=== PATIENT | female | born 1965 | race Caucasian/White ===

== ENCOUNTER → 2016-06-07 | Outpatient (CLI) | payer BC ==
[~2016-06-07] VITALS: Ht 157.5 cm; Wt 89.8 kg
[~2016-06-07] MED LIST: /SUCR1TA PO; ACET65TA PO; ASPI32ECTA PO; CIPR250T3 PO; COZA25TA8 OR; FLAG500T PO; FLON0.05; FOLI1TAB OR; FOLI1TAB2 PO; LEVO112T OR; LEVO175T2 PO; LIDOCAINE 2% INJ 100 MG/5 ML SDV (FOR ANES.) As Ordered ONE; METH2.5T OR; METH2.5TA PO; MULT1TAB10 PO; NICO14DI3 TD; NS 1,000 ML IV SCH; OMEP20TA7 OR; OREN250I IV; OREN250I SC; PERC5TAB8 OR; PLAQ200T PO; PROPOFOL 200 MG/20 ML VIAL As Ordered ONE; PROT1TAB2 PO; TUMS500C PO; ZOFR8TAB OR; [UNRECOGNIZED DRUG - OTHER] PO; cozaar PO; losartan; tylenol PO; ultram PO; vicodin PO
--- NOTE | 2016-06-07 14:41 | ROOR ---
Patient Name: Shakira Odom Procedure Date: 06/07/2016 2:26 PM Date of : 1965 Age: 51 Room: [facility] [place] Gender: Female Note Status: Finalized Procedure: Upper GI endoscopy Indications: Oropharyngeal phase dysphagia, Esophageal dysphagia, Neurogenic dysphagia. (dysphagia for liquids only). Providers: Karlo MURO MD Referring MD: LUZ MARINA URIAS DO Requesting Provider: Medicines: Monitored Anesthesia Care Complications: No immediate complications. Procedure: Pre-Anesthesia Assessment: - The heart rate, respiratory rate, oxygen saturations, blood pressure, adequacy of pulmonary ventilation, and response to care were monitored throughout the procedure. The Endoscope was introduced through the mouth, and advanced to the second part of duodenum. The upper GI endoscopy was accomplished without difficulty. The patient tolerated the procedure well. Findings: The esophagus was normal. The stomach was normal. The examined duodenum was normal. No endoscopic abnormality was evident in the esophagus to explain the patient's complaint of dysphagia. It was decided, however, to proceed with dilation of the entire esophagus. The scope was withdrawn. Dilation was performed with a Herrera dilator with no resistance at 54 Fr. Impression: - Normal esophagus. - Normal stomach. - Normal examined duodenum. - No endoscopic esophageal abnormality to explain patient's dysphagia. Esophagus dilated. Dilated with 54 Herrera dilator. - No specimens collected. Recommendation: - Observe patient's clinical course. - Continue present medications. Karlo Muro MD Kalro MURO MD 06/07/2016 2:40:57 PM This report has been signed electronically. Number of Addenda: 0 Note Initiated On: 06/07/2016 2:26 PM Estimated Blood Loss: Estimated blood loss: none.
[2016-06-07 15:03] VITALS: BP 137/88
== END | disposition home or self-care (01) ==
LOC: M OPP 12:43
PROVIDERS: ATTEND Internal Medicine Gastroenterology
DX: R13.12 Dysphagia, oropharyngeal phase (principal); R13.14 Dysphagia, pharyngoesophageal phase; R12 Heartburn; I10 Essential (primary) hypertension; M06.9 Rheumatoid arthritis, unspecified; G47.30 Sleep apnea, unspecified; F17.200 Nicotine dependence, unspecified, uncomplicated; F17.228 Nicotine dependence, chewing tobacco, with other nicotine-induced disorders; Z79.82 Long term (current) use of aspirin; Z79.899 Other long term (current) drug therapy

== ENCOUNTER → 2016-07-03 | Outpatient (REF) | payer BC ==
[~2016-07-03] MED LIST changes: -LIDOCAINE 2% INJ 100 MG/5 ML SDV (FOR ANES.) As Ordered ONE; -NS 1,000 ML IV SCH; -PROPOFOL 200 MG/20 ML VIAL As Ordered ONE
[2016-07-03 12:14] LABS: ALBUMIN 3.3 GM/DL (3.2-5.2); ALKALINE PHOSPHATASE 122 U/L (45-117); ALT/SGPT 39 U/L (12-78); AST/SGOT 20 U/L (15-37); BLOOD UREA NITROGEN 14 MG/DL (7-18); CREATININE FOR GFR 0.76 MG/DL (0.55-1.02); GLOMERULAR FILTRATION RATE > 60.0 (>51)
[2016-07-03 12:19] LABS: BASO % 0.5 % (0.0-1.0); EOS # 0.2 K/mm3 (0.0-0.50); EOS % 3.1 % (0.0-3.0); LYMPH # 2.1 K/mm3 (1.5-4.5); LYMPH % 34.6 % (24.0-44.0); MEAN CORPUSCULAR HEMOGLOBIN 31.4 pg (27.0-33.0); MEAN CORPUSCULAR HGB CONC 33.3 g/dl (32.0-36.5); MEAN CORPUSCULAR VOLUME 94.2 fl (80.0-96.0); MONO # 0.3 K/mm3 (0.0-0.8); MONO % 5.5 % (0.0-5.0); NEUTROPHILS # 3.2 K/mm3 (1.8-7.7); NEUTROPHILS % 53.4 % (36.0-66.0); RED CELL DISTRIBUTION WIDTH 13.7 % (11.5-14.5)
== END ==
LOC: M LABDRAW1 11:35
PROVIDERS: ATTEND Physician Assistant Medical
DX: M05.79 Rheumatoid arthritis with rheumatoid factor of multiple sites without organ or systems involvement (principal); Z79.899 Other long term (current) drug therapy

== ENCOUNTER → 2016-08-07 | Outpatient (CLI) | payer BC ==
[~2016-08-07] MED LIST changes: +E-Z PAQUE 60% w/v SUSP 355ML BOTTLE As Ordered ONE; +VARIBAR NECTAR 40% w/v 240ML SUSP BTL As Ordered ONE; +VARIBAR PUDDING 40% w/v 230ML TUBE As Ordered ONE
--- NOTE | 2016-08-07 12:30 | REP ---
COOKIE SWALLOW: The procedure was performed under the direct supervision of Dr. Schneider. The procedure was performed with Lana Muñoz from speech pathology present. 5 mL aliquots of nectar, pudding, solid and thin consistency barium was administered. There is no evidence of penetration or aspiration. A detailed report of this examination will be provided by speech pathology. 30 seconds of fluoroscopy time was utilized for this procedure. Reviewed by AIDE Gonzalez 08/08/2016 08:30 AEdited and Signed by Jerman Schneider MD 08/08/2016 06:13 P
== END ==
LOC: M ST 10:22
PROVIDERS: ATTEND Physician Assistant Medical
DX: R13.10 Dysphagia, unspecified (principal)

== ENCOUNTER → 2016-12-17 | Outpatient (CLI) | payer BC ==
[~2016-12-17] MED LIST changes: +ASPI325T24 PO; -ASPI32ECTA PO; -E-Z PAQUE 60% w/v SUSP 355ML BOTTLE As Ordered ONE; -FOLI1TAB2 PO; +FOLI1TAB4 PO; -VARIBAR NECTAR 40% w/v 240ML SUSP BTL As Ordered ONE; -VARIBAR PUDDING 40% w/v 230ML TUBE As Ordered ONE
[2016-12-17 15:18] LABS: ALT/SGPT 45 U/L (12-78); AST/SGOT 20 U/L (15-37)
== END ==
LOC: M LAB 13:58
PROVIDERS: ATTEND Physician Assistant
DX: R79.89 Other specified abnormal findings of blood chemistry (principal)

== ENCOUNTER → 2017-04-05 | Outpatient (CLI) | payer BC ==
--- NOTE | 2017-04-05 10:51 | REP ---
Digital diagnostic unilateral right breast mammography with CAD and focused right breast sonography: History: Screening mammography April 02, 2017 BIRADS category 0 due to a nodular density projecting in the upper outer quadrant for which diagnostic imaging was recommended. Comparison mammography is also reviewed from October 13, 2015, October 08, 2014. Mammographic findings: Magnified focal spot compression CC, MLO and true MLO views of the right breast confirm the presence of well-circumscribed nodular opacities in the upper outer quadrant. There is also a needle biopsy marker clip in the upper outer quadrant 3.5 cm from the nodular density. No other significant mammographic finding. Sonographic findings: The right breast is scanned from 9 o'clock to 12 o'clock through the upper outer quadrant. At 12 o'clock approximately 5.6 cm from the nipple there is a group of benign appearing cysts adjacent to one another with aggregate dimension of 0.7 cm in greatest diameter. This is felt to account for the mammographic opacity. It has a benign appearance. Impression: BIRADS category 2 benign right breast imaging. Repeat screening mammography recommended in 1 year. BI-RADS/ACR category 2 mammogram. Benign finding(s). Routine annual screening mammography (for women over age 40). This mammogram was interpreted with the aid of an FDA-approved computer-aided detection system. The patient states she had a clinical breast exam in March 2017. The patient letter being requested is m#1. Signed by Jerman Schneider MD 04/05/2017 01:13 P
== END ==
LOC: M RAD 09:09
PROVIDERS: ATTEND Family Medicine
DX: N60.01 Solitary cyst of right breast (principal)
CPT/HCPCS: 76642; G0204

== ENCOUNTER → 2017-05-02 | Outpatient (CLI) | payer BC ==
--- NOTE | 2017-05-02 16:10 | REP ---
LUMBAR SPINE COMPLETE: 05/02/2017. Clinical history: Low back pain. Injured 1 week ago. Findings: Five views provided. There is levoconvex curvature, mild rotation and centered at L1 for the thoracolumbar spine. Small marginal osteophytes are noted at multiple levels. Pedicles, spinous and transverse processes intact. Sacral ala and foramina intact. SI joints unremarkable. The lateral view shows disc space narrowed at L2-3 and L1-2, less at L3-4. No acute compression deformity. Facet arthropathy L5-S1. No spondylolysis. Impression: 1. Degenerative disc disease and facet arthritis as described with no compression fractures. Posterior elements intact. 2. Mild levorotatory curve centered at L1. No destructive lesion. Signed by Atif Power MD 05/02/2017 08:43 P
== END ==
LOC: M WUC 14:45
PROVIDERS: ATTEND Family Medicine
DX: M51.36 Other intervertebral disc degeneration, lumbar region (principal)

== ENCOUNTER → 2018-01-31 | Outpatient (CLI) | payer BC ==
[2018-01-31 07:36] LABS: HEMATOCRIT 39.6 % (36.0-47.0); HEMOGLOBIN 13.2 g/dl (12.0-15.5); MEAN CORPUSCULAR HEMOGLOBIN 32.3 pg (27.0-33.0); MEAN CORPUSCULAR HGB CONC 33.3 g/dl (32.0-36.5); MEAN CORPUSCULAR VOLUME 96.8 fl (80.0-96.0); PLATELET COUNT, AUTOMATED 285 10^3/uL (150-450); RED BLOOD COUNT 4.09 10^6/uL (4.00-5.40); RED CELL DISTRIBUTION WIDTH 14.8 % (11.5-14.5); WHITE BLOOD COUNT 7.4 10^3/uL (4.0-10.0)
[2018-01-31 08:03] LABS: ANION GAP 8 MEQ/L (8-16); BLOOD UREA NITROGEN 15 MG/DL (7-18); CALCIUM LEVEL 9.1 MG/DL (8.5-10.1); CARBON DIOXIDE LEVEL 28 MEQ/L (21-32); CHLORIDE LEVEL 108 MEQ/L (98-107); CREATININE FOR GFR 0.78 MG/DL (0.55-1.30); GLOMERULAR FILTRATION RATE > 60.0 (>51); GLUCOSE, FASTING 111 MG/DL (70-100); POTASSIUM SERUM 4.2 MEQ/L (3.5-5.1); SODIUM LEVEL 144 MEQ/L (136-145)
== END ==
LOC: M LAB 06:42
DX: Z01.818 Encounter for other preprocedural examination (principal); M21.611 Bunion of right foot
CPT/HCPCS: 80048

== ENCOUNTER 2018-02-12 06:13 | Day surgery (SDC) | payer BC ==
[2018-02-12] MEDS: LR 1,000 ML IV (06:50)
[2018-02-12] MEDS ORDERED: LIDOCAINE 2% INJ 100 MG/5 ML SDV (FOR ANES.) As Ordered ×2 (06:56→08:03)
[2018-02-12] MEDS ORDERED: ONDANSETRON 4MG/2ML VIAL (J2405) As Ordered (06:56)
[2018-02-12] MEDS ORDERED: PROPOFOL 200 MG/20 ML VIAL As Ordered ×5 (06:56→08:04)
[2018-02-12] MEDS ORDERED: fentaNYL 100 MCG/2 ML INJECTION (J3010) As Ordered (06:57)
[2018-02-12] MEDS ORDERED: MIDAZOLAM INJ 2 MG/2 ML VIAL (J2250) As Ordered (06:57)
[2018-02-12] MEDS: BUPIVACAINE HCL 0.5% 10 ML VIAL As Ordered (07:44)
[2018-02-12] MEDS: LIDOCAINE 1% SDV INJ 30 ML VIAL As Ordered (08:56)
[2018-02-12] MEDS: dexameTHASONE 4 MG/ML 1ML VIAL (J1100) As Ordered (08:56)
[2018-02-12] MEDS ORDERED: METOCLOPRAMIDE INJ 10MG/2ML VIAL (J2765) IV (09:45)
[2018-02-12] MEDS ORDERED: LR 1,000 ML IV (09:45)
[2018-02-12] MEDS ORDERED: ONDANSETRON 4MG/2ML VIAL (J2405) IV (09:45)
[2018-02-12] MEDS ORDERED: fentaNYL 100 MCG/2 ML INJECTION (J3010) IV (09:45)
[2018-02-12] MEDS ORDERED: PERCOCET 5MG/325MG TAB PO (09:45)
== END 2018-02-12 10:30 | disposition home or self-care (01) ==
LOC: M SDC 06:13
DX: M21.611 Bunion of right foot (principal); M21.621 Bunionette of right foot; E03.9 Hypothyroidism, unspecified; I10 Essential (primary) hypertension; M06.9 Rheumatoid arthritis, unspecified; R06.83 Snoring; G47.33 Obstructive sleep apnea (adult) (pediatric); E66.9 Obesity, unspecified; Z68.37 Body mass index [BMI] 37.0-37.9, adult; Z79.899 Other long term (current) drug therapy; Z72.0 Tobacco use; Z90.710 Acquired absence of both cervix and uterus; Z98.51 Tubal ligation status
CPT/HCPCS: 28296

== ENCOUNTER → 2018-05-16 | Outpatient (CLI) | payer BC ==
[~2018-05-16] MED LIST changes: -ASPI325T24 PO; +ASPI325T25 PO; +FOLI1TAB11 PO; -FOLI1TAB4 PO; +HYDR-3713 PO; +METH2.5T48 PO; -METH2.5TA PO; +REST0.05 OU; +XELJ11TA PO
--- NOTE | 2018-05-16 11:25 | REPMRS ---
Patient History The patient states she had a clinical breast exam in April 2018. Family history of breast cancer at age 52 in paternal cousin, unknown cancer at age 58 in mother. Digital Mammo Screening Bilat: May 16, 2018 - Exam #: [id number] Bilateral CC and MLO view(s) were taken. Technologist: Marj Conway, Technologist Prior study comparison: April 02, 2017, bilateral digital mammo screening bilat performed at [facility]. October 13, 2015, bilateral digital mammo screening bilat performed at [facility]. October 08, 2014, bilateral digital mammo screening bilat performed at [facility]. FINDINGS: There are scattered fibroglandular densities. There is a needle biopsy marker clip again noted in the upper outer quadrant of the right breast. Stable nodular opacities are again noted bilaterally. There has been no change in the appearance of the mammogram from the prior studies. There is a mild amount of scattered fibroglandular density which is fairly symmetric. There is no interval development of dominant mass, architectural distortion, or clustered microcalcification suggestive of malignancy. 3-D tomosynthesis shows no additional findings. Assessment: BI-RADS/ACR category 2 mammogram. Benign finding(s). Recommendation Routine screening mammogram of both breasts in 1 year (for women over age 40). This patient's Lifetime Breast Cancer RIsk is estimated at 7.4 %. This mammogram was interpreted with the aid of an FDA-approved computer-aided dectection system. Electronically Signed By: Tamir Schneider MD 05/16/18 [id number]
== END ==
LOC: M RAD 08:59
PROVIDERS: ATTEND Family Medicine
DX: Z12.31 Encounter for screening mammogram for malignant neoplasm of breast (principal); Z80.3 Family history of malignant neoplasm of breast

== ENCOUNTER 2018-12-03 12:06 | Emergency (ER) | payer BC ==
[~2018-12-03] VITALS: Ht 157.5 cm; Wt 94.0 kg
[~2018-12-03 12:06] MED LIST changes: -/SUCR1TA PO; +ASPI-255 PO; -ASPI325T25 PO; +ONDA-227 OR; +SUCR1TAB56 PO; -ZOFR8TAB OR
[2018-12-03] MEDS ORDERED: XIID5DRO (12:24)
[2018-12-03 12:34] LABS: BASO % 0.4 % (0.0-1.0); EOS # 0.1 10^3/uL (0.0-0.50); EOS % 1.4 % (0.0-3.0); HEMATOCRIT 41.3 % (36.0-47.0); LYMPH # 1.9 10^3/uL (1.5-4.5); MEAN CORPUSCULAR HEMOGLOBIN 32.5 pg (27.0-33.0); MEAN CORPUSCULAR HGB CONC 33.9 g/dl (32.0-36.5); MEAN CORPUSCULAR VOLUME 95.8 fl (80.0-96.0); MONO # 0.8 10^3/uL (0.0-0.8); NEUTROPHILS # 4.5 10^3/uL (1.8-7.7); NEUTROPHILS % 60.8 % (36.0-66.0); PLATELET COUNT, AUTOMATED 260 10^3/uL (150-450); RED BLOOD COUNT 4.31 10^6/uL (4.00-5.40); WHITE BLOOD COUNT 7.4 10^3/uL (4.0-10.0)
[2018-12-03 12:59] LABS: BLOOD UREA NITROGEN 12 MG/DL (7-18); CALCIUM LEVEL 8.9 MG/DL (8.5-10.1); CARBON DIOXIDE LEVEL 29 MEQ/L (21-32); CHLORIDE LEVEL 107 MEQ/L (98-107); CK-MB VALUE MASS < 1.0 NG/ML (<3.6); CPK CREATINE PHOSPHOKINASE 95 U/L (26-192); CREATININE FOR GFR 0.81 MG/DL (0.55-1.30); GLOMERULAR FILTRATION RATE > 60.0 (>51); GLUCOSE, FASTING 95 MG/DL (70-100); MB/CK RELATIVE INDEX 1.05 (< OR =4); POTASSIUM SERUM 4.1 MEQ/L (3.5-5.1); SODIUM LEVEL 141 MEQ/L (136-145); TROPONIN I < 0.02 NG/ML (< 0.10)
--- NOTE | 2018-12-03 13:05 | REP ---
Portable chest x-ray: Single view. History: Chest pain. Comparison study: July 23, 2013. Findings: EKG monitoring electrodes overlie the chest. Heart is not enlarged. The aorta is tortuous. Pulmonary vasculature is not increased. Pleural angles are sharp. Impression: No active disease. Electronically Signed by Jerman Schneider MD 12/03/2018 01:45 P
[2018-12-03] MEDS ORDERED: ISOVUE-370 76% 100ML VIAL (Q9967) As Ordered ONE (14:39)
[2018-12-03 15:19] LABS: PHOSPHORUS LEVEL 3.3 MG/DL (2.5-4.9)
--- NOTE | 2018-12-03 15:39 | REP ---
CT ANGIOGRAM CHEST: TECHNIQUE: Axial contrast enhanced images from the thoracic inlet to the upper abdomen using 100 mL Isovue 370 intravenous contrast material with multiplanar reformations. There is no CT evidence of pulmonary embolism. There is no thoracic aortic aneurysm or dissection. The heart is normal in size. There is no mediastinal, hilar or chest wall lymphadenopathy. There is no pleural or pericardial effusion. Calcified granuloma is seen in the right upper lobe. No infiltrate is seen in either lung. There are mild degenerative changes of the spine. There appears to be fatty infiltration of the liver. IMPRESSION: No CT evidence of pulmonary embolism or aortic dissection. Electronically Signed by Dillon Massey MD 12/05/2018 12:34 P
[2018-12-03 18:57] LABS: CK-MB VALUE MASS < 1.0 NG/ML (<3.6); CPK CREATINE PHOSPHOKINASE 121 U/L (26-192); MB/CK RELATIVE INDEX 0.83 (< OR =4); TROPONIN I < 0.02 NG/ML (< 0.10)
[2018-12-03 19:45] VITALS: BP 115/79
--- NOTE | 2018-12-04 07:38 | ECGEPIP ---
[facility] - ED Test Date: 2018-12-03 Pat Name: ELOY BARAJAS Department: Room: - Gender: Female Equity Manager: : 1965 Requested By: DIAN Etienne Order Number: [id number] Reading MD: Noemy Wilburn Measurements Intervals [place] Rate: 101 P: 58 DC: 154 QRS: QRSD: 86 T: 8 QT: 354 QTc: 460 Interpretive Statements SINUS TACHYCARDIA WITH FREQUENT VENTRICULAR PREMATURE COMPLEXES IN A BIGEMINAL PAT PATTERN ABNORMAL RHYTHM ECG NSTTW abnormalities INCREASED ECTOPY AND RATE 06/21/15 Electronically Signed on 12-04-2018 7:38:17 EDT by Noemy Wilburn
--- NOTE | 2018-12-04 07:43 | ECGEPIP ---
[facility] - ED Test Date: 2018-12-03 Pat Name: ELOY BARAJAS Department: Room: - Gender: Female Product Design Specialist: : 1965 Requested By: DIAN Etienne Order Number: [id number] Reading MD: Noemy Wilburn Measurements Intervals [place] Rate: 76 P: 53 AR: 168 QRS: QRSD: 81 T: 18 QT: 382 QTc: 431 Interpretive Statements SINUS RHYTHM DECREASED RATE/ECTOPY 12:15 Electronically Signed on 12-04-2018 7:43:16 EDT by Noemy Wilburn
== END 2018-12-03 19:53 | disposition home or self-care (01) ==
LOC: M ED 12:06
DX: R00.2 Palpitations (principal); R07.9 Chest pain, unspecified; R06.02 Shortness of breath; R00.8 Other abnormalities of heart beat; I10 Essential (primary) hypertension; F32.9 Major depressive disorder, single episode, unspecified; K21.9 Gastro-esophageal reflux disease without esophagitis; E07.9 Disorder of thyroid, unspecified; F17.200 Nicotine dependence, unspecified, uncomplicated; Z82.49 Family history of ischemic heart disease and other diseases of the circulatory system; Z79.899 Other long term (current) drug therapy; Z79.82 Long term (current) use of aspirin
CPT/HCPCS: 71045; 71275; 80048; 82550; 82553; 83735; 84100; 84484; 85025; 93005; 93041; 94760; 99285; Q9967

== ENCOUNTER → 2019-08-21 | Outpatient (CLI) | payer BC ==
[~2019-08-21] MED LIST changes: +ABAT250V SC; -OREN250I SC; +XIID5DRO
== END ==
LOC: M LABSMTC 10:59
PROVIDERS: ATTEND Family Medicine
DX: Z11.59 Encounter for screening for other viral diseases (principal); Z20.828 Contact with and (suspected) exposure to other viral communicable diseases
CPT/HCPCS: 87502; U0002

== ENCOUNTER → 2019-10-28 | Outpatient (CLI) | payer BC ==
[~2019-10-28] MED LIST changes: -ABAT250V SC; +OREN250I2 SC
[2019-10-28 09:47] LABS: ALT/SGPT 56 U/L (12-78)
== END ==
LOC: M LAB 08:35
PROVIDERS: ATTEND Nurse Practitioner
DX: M05.79 Rheumatoid arthritis with rheumatoid factor of multiple sites without organ or systems involvement (principal); Z79.899 Other long term (current) drug therapy

== ENCOUNTER 2019-12-24 15:50 | Day surgery (SDC) | payer BC ==
[~2019-12-24 15:50] MED LIST changes: +GNP650TA8 PO; +LIDOCAINE 2% 100MG/5ML SDV (FOR ANES.) As Ordered ONE; +LOSA50TA88 PO; +MULTCAP PO; -XIID5DRO; +XIID5DRO OU; +propofoL 200 MG/20 ML VIAL As Ordered ONE
--- NOTE | 2020-02-03 11:32 | ROOR ---
Patient Name: Shakira Odom Procedure Date: 12/24/2019 3:42 PM Date of : 1965 Age: 54 Room: [facility] Gender: Female Note Status: Finalized Procedure: Colonoscopy Indications: High risk colon cancer surveillance: Personal history of colonic polyps Providers: Neil Francisco Jr, MD Referring MD: LUZ MARINA URIAS DO Requesting Provider: Medicines: Propofol per Anesthesia Complications: No immediate complications. Procedure: Pre-Anesthesia Assessment: - Prior to the procedure, a History and Physical was performed, and patient medications and allergies were reviewed. The patient is competent. The risks and benefits of the procedure and the sedation options and risks were discussed with the patient. All questions were answered and informed consent was obtained. Patient identification and proposed procedure were verified by the physician and the nurse in the pre-procedure area and in the procedure room. Mental Status Examination: alert and oriented. Airway Examination: normal oropharyngeal airway and neck mobility. Respiratory Examination: clear to auscultation. CV Examination: normal. ASA Grade Assessment: II - A patient with mild systemic disease. After reviewing the risks and benefits, the patient was deemed in satisfactory condition to undergo the procedure. The anesthesia plan was to use moderate sedation / analgesia (conscious sedation). Immediately prior to administration of medications, the patient was re-assessed for adequacy to receive sedatives. The heart rate, respiratory rate, oxygen saturations, blood pressure, adequacy of pulmonary ventilation, and response to care were monitored throughout the procedure. The physical status of the patient was re-assessed after the procedure. The Colonoscope was introduced through the anus and advanced to the cecum, identified by appendiceal orifice and ileocecal valve. The colonoscopy was performed without difficulty. The patient tolerated the procedure well. The quality of the bowel preparation was adequate. Findings: The rectum, recto-sigmoid colon, sigmoid colon, descending colon, transverse colon, ascending colon, cecum, appendiceal orifice and ileocecal valve appeared normal. Non-bleeding internal hemorrhoids were found during endoscopy. The hemorrhoids were Grade II (internal hemorrhoids that prolapse but reduce spontaneously) and Grade III (internal hemorrhoids that prolapse but require manual reduction). Impression: - The rectum, recto-sigmoid colon, sigmoid colon, descending colon, transverse colon, ascending colon, cecum, appendiceal orifice and ileocecal valve are normal. - Non-bleeding internal hemorrhoids. - No specimens collected. Recommendation: - Repeat colonoscopy in 5 years for surveillance. Neil Francisco MD Neil Francisco Jr, MD 12/24/2019 4:30:54 PM Electronically signed by Neil Francisco Jr, MD Number of Addenda: 0 Note Initiated On: 12/24/2019 3:42 PM Estimated Blood Loss: Estimated blood loss: none.
== END 2019-12-24 17:00 | disposition home or self-care (01) ==
LOC: M OPP 15:50
PROVIDERS: ATTEND Surgery
DX: Z12.11 Encounter for screening for malignant neoplasm of colon (principal); Z86.010 Personal history of colon polyps; K64.2 Third degree hemorrhoids; K64.1 Second degree hemorrhoids; K21.9 Gastro-esophageal reflux disease without esophagitis; E03.9 Hypothyroidism, unspecified; Z79.82 Long term (current) use of aspirin; Z79.899 Other long term (current) drug therapy; Z87.891 Personal history of nicotine dependence

== ENCOUNTER → 2020-01-18 | Outpatient (CLI) | payer BC ==
[~2020-01-18] MED LIST changes: -LIDOCAINE 2% 100MG/5ML SDV (FOR ANES.) As Ordered ONE; -propofoL 200 MG/20 ML VIAL As Ordered ONE
--- NOTE | 2020-01-18 17:20 | REPMRS ---
Patient History The patient states she has not had a clinical breast exam in over a year. Family history of breast cancer at age 52 in paternal cousin, unknown cancer at age 58 in mother. Digital Woman Screen Mammo: January 18, 2020 - Exam #: [id number] Bilateral CC and MLO view(s) were taken. Technologist: Marj Conway, Technologist Prior study comparison: May 16, 2018, bilateral digital mammo screening bilat, performed at [facility]. April 02, 2017, bilateral digital mammo screening bilat, performed at [facility]. October 13, 2015, bilateral digital mammo screening bilat, performed at [facility]. FINDINGS: The breast tissue is almost entirely fat. The Volpara volumetric breast density category is: A. There is a needle biopsy marker clip in the right breast. There has been no change in the appearance of the mammogram from the prior studies. There is no interval development of dominant mass, architectural distortion, or grouped microcalcification typical of malignancy. 3-D tomosynthesis shows no additional findings. Assessment: BI-RADS/ACR category 2 mammogram. Benign Findings. Recommendation Routine screening mammogram of both breasts in 1 year (for women over age 40). This patient's Lifetime Breast Cancer RIsk is estimated at 7.0 %. This mammogram was interpreted with the aid of an FDA-approved computer-aided dectection system. Electronically Signed By: Tamir Schneider MD 01/18/20 [id number]
== END ==
LOC: M WHC 11:56
PROVIDERS: ATTEND Advanced Practice Midwife
DX: Z12.31 Encounter for screening mammogram for malignant neoplasm of breast (principal)

== ENCOUNTER 2020-04-13 17:24 | Emergency (ER) | payer BC ==
[~2020-04-13] VITALS: Ht 157.5 cm; Wt 101.0 kg
[2020-04-13 18:38] LABS: BASO % 0.4 % (0.0-1.0); EOS # 0.1 10^3/uL (0.0-0.5); HEMATOCRIT 42.3 % (36.0-47.0); HEMOGLOBIN 13.5 g/dl (12.0-15.5); LYMPH # 1.5 10^3/uL (1.5-5.0); LYMPH % 30.3 % (24.0-44.0); MEAN CORPUSCULAR HEMOGLOBIN 31.3 pg (27.0-33.0); MEAN CORPUSCULAR HGB CONC 31.9 g/dl (32.0-36.5); MEAN CORPUSCULAR VOLUME 97.9 fl (80.0-96.0); MONO # 0.5 10^3/uL (0.0-0.8); MONO % 8.9 % (0.0-5.0); NEUTROPHILS # 2.9 10^3/uL (1.5-8.5); PLATELET COUNT, AUTOMATED 239 10^3/uL (150-450); RED BLOOD COUNT 4.32 10^6/uL (4.00-5.40); WHITE BLOOD COUNT 5.1 10^3/uL (4.0-10.0)
[2020-04-13 18:51] LABS: INR 0.92; PARTIAL THROMBOPLASTIN TIME 25.8 SECONDS (24.2-38.5); PROTHROMBIN TIME 12.6 SECONDS (12.5-14.3)
--- NOTE | 2020-04-13 18:53 | REP ---
INDICATION: CHEST PAIN. COMPARISON: 12/03/2018 FINDINGS: The technique utilized in obtaining the radiograph has magnified the cardiac silhouette and accentuated the interstitial markings. The superior mediastinal structures are midline. The cardiac silhouette is unremarkable in size, shape, and position. The diaphragmatic surfaces of the lungs are regular, and the costophrenic angles are clear. The pulmonary treviño are clear. The imaged osseous structures are intact. IMPRESSION: There is no acute cardiopulmonary disease. <Electronically signed by Johnny Huber > 04/13/20 [id number]
[2020-04-13 19:07] LABS: ERYTHROCYTE SEDIMENTATION RATE 18 mm/hr (0-30)
[2020-04-13 19:11] LABS: ALBUMIN 3.7 GM/DL (3.2-5.2); ALT/SGPT 35 U/L (12-78); BILIRUBIN,DIRECT 0.1 MG/DL (0.0-0.2); BILIRUBIN,TOTAL 0.4 MG/DL (0.2-1.0); BLOOD UREA NITROGEN 11 MG/DL (7-18); CARBON DIOXIDE LEVEL 28 MEQ/L (21-32); CHLORIDE LEVEL 107 MEQ/L (98-107); CK-MB VALUE MASS < 1.0 NG/ML (<3.6); CPK CREATINE PHOSPHOKINASE 105 U/L (26-192); CREATININE FOR GFR 0.94 MG/DL (0.55-1.30); FREE T4 1.29 NG/DL (0.76-1.46); GLOMERULAR FILTRATION RATE > 60.0 (>51); GLUCOSE, FASTING 119 MG/DL (70-100); MAGNESIUM LEVEL 1.8 MG/DL (1.8-2.4); MB/CK RELATIVE INDEX 0.95 (< OR =4); NT-PRO BNP 217 PG/ML (<125); SODIUM LEVEL 141 MEQ/L (136-145); TOTAL PROTEIN 7.5 GM/DL (6.4-8.2); TROPONIN I < 0.02 NG/ML (< 0.10)
[2020-04-13] MEDS ORDERED: ISOVUE-370 76% 100ML VIAL As Ordered ONE (20:31)
--- NOTE | 2020-04-13 22:28 | REPVR ---
PROCEDURE INFORMATION: Exam: CT Angiography Chest With Contrast Exam date and time: 04/13/2020 9:30 PM Age: 54 years old Clinical indication: Shortness of breath; Additional info: Rule out pe, SOB TECHNIQUE: Imaging protocol: Computed tomographic angiography of the chest with intravenous contrast. 3D rendering (Not supervised by radiologist): MIP and/or 3D reconstructed images were created by the technologist. Radiation optimization: All CT scans at this facility use at least one of these dose optimization techniques: automated exposure control; mA and/or kV adjustment per patient size (includes targeted exams where dose is matched to clinical indication); or iterative reconstruction. Contrast material: ISOVUE 370; Contrast volume: 75 ml; Contrast route: INTRAVENOUS (IV); COMPARISON: CT ANGIO CHEST 12/03/2018 2:41 PM FINDINGS: Pulmonary arteries: There is no evidence of filling defects within the pulmonary arterial circulation to suggest pulmonary embolism. Aorta: No aortic aneurysm. No aortic dissection. Mild atherosclerosis. Lungs: No lung consolidation. Pleural space: No pleural effusion. Heart: Unremarkable. No cardiomegaly. No pericardial effusion. Lymph nodes: Unremarkable. No enlarged lymph nodes. Gallbladder and bile ducts: Cholecystectomy. Pancreas: There is fatty replacement of the pancreas. Bones/joints: Probable Schmorl's nodes in the vertebral body endplates at the thoracolumbar junction with a mild compression fracture of a superior endplate which is stable in comparison to the prior CT. Soft tissues: Unremarkable. Other findings: No further significant findings in the upper abdomen. IMPRESSION: 1. No evidence of pulmonary embolic disease. 2. No pneumonia or congestive heart failure. Electronically signed by: Shoshana Sprague On 04/13/2020 22:28:15 PM
[2020-04-14 01:00] VITALS: BP 150/93
--- NOTE | 2020-04-15 21:26 | ECGEPIP ---
[facility] - ED Test Date: 2020-04-13 Pat Name: ELOY BARAJAS Department: Room: - Gender: Female Journeyman Pipe Welder: alexus lepe : 1965 Requested By: JAMARI Calhoun Order Number: [id number] Reading MD: Noemy Wilburn Measurements Intervals [place] Rate: 88 P: 48 UT: 165 QRS: -5 QRSD: 85 T: 63 QT: 355 QTc: 431 Interpretive Statements SINUS RHYTHM WITH FREQUENT ECTOPIC PREMATURE COMPLEXES LOW QRS VOLTAGE IN PRECORDIAL LEADS NONSPECIFIC ST & T-WAVE ABNORMALITY ABNORMAL RHYTHM ECG Electronically Signed on 04-15-2020 21:26:13 EST by Noemy Wilburn
== END 2020-04-14 01:47 | disposition home or self-care (01) ==
LOC: M ED 17:24
DX: R06.02 Shortness of breath (principal); R07.9 Chest pain, unspecified; I10 Essential (primary) hypertension; E03.9 Hypothyroidism, unspecified; M06.9 Rheumatoid arthritis, unspecified; Z79.899 Other long term (current) drug therapy; Z79.890 Hormone replacement therapy; Z79.82 Long term (current) use of aspirin; F17.210 Nicotine dependence, cigarettes, uncomplicated
CPT/HCPCS: 36415; 71045; 71275; 80048; 80076; 82550; 82553; 83735; 83880; 84439; 84443; 84484; 85025; 85610; 85652; 85730; 86140; 93005; 93041; 94760; 99285; Q9967; U0002

== ENCOUNTER → 2020-04-13 | Outpatient (CLI) | payer BC ==
[2020-04-13 16:41] LABS: HEMATOCRIT 41.7 % (36.0-47.0); MEAN CORPUSCULAR HEMOGLOBIN 31.3 pg (27.0-33.0); MEAN CORPUSCULAR HGB CONC 31.2 g/dl (32.0-36.5); MEAN CORPUSCULAR VOLUME 100.2 fl (80.0-96.0); PLATELET COUNT, AUTOMATED 240 10^3/uL (150-450); RED BLOOD COUNT 4.16 10^6/uL (4.00-5.40); WHITE BLOOD COUNT 5.2 10^3/uL (4.0-10.0)
[2020-04-13 16:52] LABS: ALBUMIN 3.5 GM/DL (3.2-5.2); ALT/SGPT 33 U/L (12-78); AMYLASE 59 U/L (25-115); BILIRUBIN,TOTAL 0.6 MG/DL (0.2-1.0); BLOOD UREA NITROGEN 12 MG/DL (7-18); CALCIUM LEVEL 9.1 MG/DL (8.5-10.1); CARBON DIOXIDE LEVEL 30 MEQ/L (21-32); CHLORIDE LEVEL 106 MEQ/L (98-107); CREATININE FOR GFR 0.93 MG/DL (0.55-1.30); GLOMERULAR FILTRATION RATE > 60.0 (>51); GLUCOSE, FASTING 144 MG/DL (70-100); LIPASE 40 U/L (73-393); NT-PRO BNP 173 PG/ML (<125); POTASSIUM SERUM 4.2 MEQ/L (3.5-5.1); SODIUM LEVEL 140 MEQ/L (136-145); TOTAL PROTEIN 6.8 GM/DL (6.4-8.2)
== END ==
LOC: M WUC 11:57
PROVIDERS: ATTEND Family Medicine
DX: R06.02 Shortness of breath (principal); R60.9 Edema, unspecified; R10.13 Epigastric pain

== ENCOUNTER → 2020-05-31 | Outpatient (CLI) | payer SELFPAY | LOC: M LABSMTC 12:53 | PROVIDERS: ATTEND Pediatrics | DX: Z20.822 Contact with and (suspected) exposure to COVID-19 (principal) ==

== ENCOUNTER → 2020-06-05 | Outpatient (CLI) | payer SELFPAY | LOC: M LABSMTC 11:29 | PROVIDERS: ATTEND Pediatrics | DX: Z20.822 Contact with and (suspected) exposure to COVID-19 (principal) ==

== ENCOUNTER → 2021-05-08 | Outpatient (REF) ==
[2021-05-08 15:37] LABS: RSV AMPLIFICATION NEGATIVE (NEGATIVE)
== END ==
LOC: M LABSMTC 11:20
PROVIDERS: ATTEND Family Medicine
DX: Z11.52 Encounter for screening for COVID-19 (principal); Z20.822 Contact with and (suspected) exposure to COVID-19

== ENCOUNTER → 2021-05-27 | Outpatient (REF) | LOC: M EMP 14:20 | PROVIDERS: ATTEND Family Medicine | DX: Z11.52 Encounter for screening for COVID-19 (principal); Z20.822 Contact with and (suspected) exposure to COVID-19 ==

== ENCOUNTER → 2021-05-30 | Outpatient (REF) ==
[2021-05-30 11:48] LABS: RSV AMPLIFICATION NEGATIVE (NEGATIVE)
== END ==
LOC: M EMP 10:01
PROVIDERS: ATTEND Family Medicine
DX: Z11.52 Encounter for screening for COVID-19 (principal); Z20.822 Contact with and (suspected) exposure to COVID-19

== ENCOUNTER 2021-05-31 12:21 | Outpatient (CLI) | payer BC ==
[~2021-05-31] VITALS: Ht 157.5 cm; Wt 91.5 kg
[~2021-05-31 12:21] MED LIST changes: +ALBUTEROL 90 MCG/ACT 8GM HFA INHALER INH PRN; +ALBUTEROL SULFATE 2.5 MG/0.5 ML INH NEB SOLN INH PRN; +EPINEPHrine INJ 1 MG/ML 1ML AMP IM PRN; +NS 1,000 ML IV SCH; +diphenhydrAMINE 50MG/ML VIAL (J1200) IV PRN; +methylPREDNISolone 125MG 2ML VIAL IV PRN
[2021-05-31] MEDS ORDERED: CASIRIVIMAB/IMDEVIMAB 1,200 MG in NS 250 ML IV ONE (13:00)
[2021-05-31 13:15] VITALS: BP 115/55
[2021-05-31 13:45] VITALS: BP 131/69
[2021-05-31 14:15] VITALS: BP 130/76
[2021-05-31 15:15] VITALS: BP 127/65
== END 2021-05-31 15:15 | disposition home or self-care (01) ==
LOC: M OPCLI4PR 12:21
PROVIDERS: ATTEND Family Medicine
DX: U07.1 COVID-19 (principal)

== ENCOUNTER → 2021-08-09 | Outpatient (REF) | payer BC ==
[~2021-08-09] MED LIST changes: -ALBUTEROL 90 MCG/ACT 8GM HFA INHALER INH PRN; -ALBUTEROL SULFATE 2.5 MG/0.5 ML INH NEB SOLN INH PRN; -EPINEPHrine INJ 1 MG/ML 1ML AMP IM PRN; +LOSA50TA28 PO; -LOSA50TA88 PO; -NS 1,000 ML IV SCH; -diphenhydrAMINE 50MG/ML VIAL (J1200) IV PRN; -methylPREDNISolone 125MG 2ML VIAL IV PRN
== END ==
LOC: M SFHCWAGY 12:57
PROVIDERS: ATTEND Advanced Practice Midwife
DX: D07.1 Carcinoma in situ of vulva (principal); R87.613 High grade squamous intraepithelial lesion on cytologic smear of cervix (HGSIL)

== ENCOUNTER → 2022-06-11 | Outpatient (CLI) | payer BC | LOC: M WHC 13:39 | PROVIDERS: ATTEND Family Medicine | DX: Z12.31 Encounter for screening mammogram for malignant neoplasm of breast (principal) ==

== ENCOUNTER → 2022-07-17 | Outpatient (CLI) | payer BC ==
[2022-07-17 17:40] LABS: BASO % 0.5 % (0.0-1.0); EOS # 0.2 10^3/uL (0.0-0.5); EOS % 2.7 % (0.0-3.0); HEMATOCRIT 39.9 % (36.0-47.0); HEMOGLOBIN 12.8 g/dl (12.0-15.5); LYMPH # 1.9 10^3/uL (1.5-5.0); LYMPH % 28.3 % (24.0-44.0); MEAN CORPUSCULAR HEMOGLOBIN 32.4 pg (27.0-33.0); MEAN CORPUSCULAR HGB CONC 32.1 g/dl (32.0-36.5); MONO # 0.7 10^3/uL (0.0-0.8); MONO % 10.3 % (2.0-8.0); NEUTROPHILS # 3.8 10^3/uL (1.5-8.5); NEUTROPHILS % 57.3 % (36.0-66.0); PLATELET COUNT, AUTOMATED 289 10^3/uL (150-450); RED BLOOD COUNT 3.95 10^6/uL (4.00-5.40); WHITE BLOOD COUNT 6.6 10^3/uL (4.0-10.0)
[2022-07-17 18:01] LABS: THYROID STIMULATING HORMONE 1.647 uIU/ML (0.55-4.78)
[2022-07-17 19:21] LABS: ALBUMIN 3.4 G/DL (3.2-5.2); ALKALINE PHOSPHATASE 81 U/L (46-116); ALT/SGPT 20 U/L (7.0-40); AST/SGOT 20 U/L (<34); BILIRUBIN,TOTAL 0.3 MG/DL (0.3-1.2); BLOOD UREA NITROGEN 16 MG/DL (9-23); CALCIUM LEVEL 9.1 MG/DL (8.5-10.1); CARBON DIOXIDE LEVEL 31 MMOL/L (20-31); CHLORIDE LEVEL 108 MMOL/L (98-107); GLUCOSE, FASTING 78 MG/DL (60-100); POTASSIUM SERUM 4.1 MMOL/L (3.5-5.1); SODIUM LEVEL 142 MMOL/L (136-145); TOTAL PROTEIN 6.8 G/DL (5.7-8.2)
[2022-07-17 20:00] LABS: CREATININE FOR GFR 0.76 MG/DL (0.55-1.30); GLOMERULAR FILTRATION RATE > 60.0 (>51)
== END ==
LOC: M PLALAB 16:26
PROVIDERS: ATTEND Family Medicine
DX: E03.9 Hypothyroidism, unspecified (principal); I10 Essential (primary) hypertension; K75.81 Nonalcoholic steatohepatitis (NASH)

== ENCOUNTER → 2022-08-29 | Outpatient (REF) | payer BC | LOC: M LAB REF 21:57 | PROVIDERS: ATTEND Physician Assistant | DX: J02.9 Acute pharyngitis, unspecified (principal) ==

== ENCOUNTER 2022-10-08 09:01 | Emergency (ER) | payer BC ==
[~2022-10-08] VITALS: Ht 160 cm; Wt 91.4 kg
[2022-10-08] MEDS ORDERED: HYDR1CAP25 (10:13)
[2022-10-08] MEDS ORDERED: VALA1TAB5 (10:13)
[2022-10-08 11:00] LABS: BASO % 0.5 % (0.0-1.0); EOS # 0.2 10^3/uL (0.0-0.5); EOS % 2.6 % (0.0-3.0); HEMOGLOBIN 12.9 g/dl (12.0-15.5); LYMPH # 1.5 10^3/uL (1.5-5.0); LYMPH % 25.7 % (24.0-44.0); MEAN CORPUSCULAR HEMOGLOBIN 32.8 pg (27.0-33.0); MEAN CORPUSCULAR HGB CONC 33.1 g/dl (32.0-36.5); MEAN CORPUSCULAR VOLUME 99.2 fl (80.0-96.0); MONO # 0.6 10^3/uL (0.0-0.8); MONO % 9.5 % (2.0-8.0); NEUTROPHILS # 3.6 10^3/uL (1.5-8.5); NEUTROPHILS % 61.2 % (36.0-66.0); PLATELET COUNT, AUTOMATED 233 10^3/uL (150-450); RED BLOOD COUNT 3.93 10^6/uL (4.00-5.40); WHITE BLOOD COUNT 5.9 10^3/uL (4.0-10.0)
[2022-10-08 11:23] LABS: LIPASE 20 U/L (12-53)
[2022-10-08 11:25] LABS: ALBUMIN 4.2 G/DL (3.2-5.2); ALKALINE PHOSPHATASE 67 U/L (46-116); ALT/SGPT 37 U/L (7.0-40); AST/SGOT 32 U/L (<34); BILIRUBIN,DIRECT 0.3 MG/DL (<0.4); BLOOD UREA NITROGEN 15 MG/DL (9-23); CALCIUM LEVEL 9.2 MG/DL (8.5-10.1); CARBON DIOXIDE LEVEL 26 MMOL/L (20-31); CHLORIDE LEVEL 108 MMOL/L (98-107); GLOMERULAR FILTRATION RATE > 60.0 (>51); GLUCOSE, FASTING 98 MG/DL (60-100); POTASSIUM SERUM 4.3 MMOL/L (3.5-5.1); SODIUM LEVEL 141 MMOL/L (136-145); TOTAL PROTEIN 7.3 G/DL (5.7-8.2)
[2022-10-08] MEDS ORDERED: ACETAMINOPHEN 1000MG 100ML IV BAG IV ONE (11:45)
[2022-10-08] MEDS ORDERED: ISOVUE-370 76% 100ML VIAL As Ordered ONE (11:49)
[2022-10-08] MEDS ORDERED: GABA-283 PO (13:24)
[2022-10-08] MEDS ORDERED: CEFD300C PO (13:24)
[2022-10-08 13:38] VITALS: BP 143/65
== END 2022-10-08 13:40 | disposition home or self-care (01) ==
LOC: M ED 09:01
DX: B02.9 Zoster without complications (principal); N39.0 Urinary tract infection, site not specified; I10 Essential (primary) hypertension; Z79.899 Other long term (current) drug therapy; Z79.82 Long term (current) use of aspirin
CPT/HCPCS: 74177; 80048; 80076; 81001; 83690; 85025; 87088; 87186; 96374; 99284; J0131; Q9967

== ENCOUNTER → 2023-03-30 | Outpatient (CLI) | payer OTHER, BC ==
[~2023-03-30] MED LIST changes: +CEFD300C PO; +GABA-284 PO; +HYDR1CAP25; +VALA1TAB5
[2023-03-30 10:56] LABS: BASO % 0.1 % (0.0-1.0); HEMATOCRIT 36.6 % (36.0-47.0); HEMOGLOBIN 12.3 g/dl (12.0-15.5); LYMPH # 0.6 10^3/uL (1.5-5.0); LYMPH % 5.9 % (24.0-44.0); MEAN CORPUSCULAR HEMOGLOBIN 32.6 pg (27.0-33.0); MEAN CORPUSCULAR HGB CONC 33.6 g/dl (32.0-36.5); MEAN CORPUSCULAR VOLUME 97.1 fl (80.0-96.0); MONO # 0.3 10^3/uL (0.0-0.8); MONO % 3.3 % (2.0-8.0); NEUTROPHILS # 8.8 10^3/uL (1.5-8.5); NEUTROPHILS % 90.2 % (36.0-66.0); PLATELET COUNT, AUTOMATED 283 10^3/uL (150-450); RED BLOOD COUNT 3.77 10^6/uL (4.00-5.40); WHITE BLOOD COUNT 9.7 10^3/uL (4.0-10.0)
[2023-03-30 11:05] LABS: ERYTHROCYTE SEDIMENTATION RATE 19 mm/hr (0-30)
[2023-03-30 11:18] LABS: C REACTIVE PROTEIN QUANTITATIV < 0.40 MG/DL (<1.0)
[2023-03-30 11:19] LABS: ALT/SGPT 39 U/L (7.0-40); AST/SGOT 21 U/L (<34); BLOOD UREA NITROGEN 17 MG/DL (9-23); GLOMERULAR FILTRATION RATE > 60.0 (>51)
== END ==
LOC: M LAB 10:32
PROVIDERS: ATTEND Nurse Practitioner
DX: M05.79 Rheumatoid arthritis with rheumatoid factor of multiple sites without organ or systems involvement (principal); Z79.899 Other long term (current) drug therapy

== ENCOUNTER → 2023-04-18 | Outpatient (CLI) | payer OTHER, BC | LOC: M PLALAB 10:00 | PROVIDERS: ATTEND Family Medicine | DX: I10 Essential (primary) hypertension (principal); E03.9 Hypothyroidism, unspecified ==

== ENCOUNTER 2023-11-28 16:50 | Emergency (ER) | payer BC, OTHER ==
[~2023-11-28] VITALS: Ht 160 cm; Wt 72.3 kg
[2023-11-28] MEDS: NS 1,000 ML IV SCH (17:25)
[2023-11-28] MEDS: ONDANSETRON 4MG 2ML VIAL IV ONE (17:25)
[2023-11-28 17:37] LABS: ETHYL ALCOHOL (ETHANOL) 0.253 % (0.000-0.010)
[2023-11-28 17:38] LABS: SALICYLATE LEVEL < 3.0 MG/DL (<30)
[2023-11-28 17:39] LABS: ALBUMIN 3.8 G/DL (3.2-5.2); ALKALINE PHOSPHATASE 72 U/L (46-116); ALT/SGPT 90 U/L (7.0-40); AST/SGOT 206 U/L (<34); BILIRUBIN,DIRECT 0.1 MG/DL (<0.4); BILIRUBIN,TOTAL 0.5 MG/DL (0.3-1.2); BLOOD UREA NITROGEN 28 MG/DL (9-23); CALCIUM LEVEL 8.7 MG/DL (8.3-10.6); CARBON DIOXIDE LEVEL 24 MMOL/L (20-31); CHLORIDE LEVEL 105 MMOL/L (98-107); CREATININE FOR GFR 0.63 MG/DL (0.55-1.30); GLOMERULAR FILTRATION RATE > 60.0 (>45); GLUCOSE, FASTING 134 MG/DL (74-106); POTASSIUM SERUM 3.3 MMOL/L (3.5-5.1); SODIUM LEVEL 139 MMOL/L (136-145); TOTAL PROTEIN 7.1 G/DL (5.7-8.2)
[2023-11-28 17:40] LABS: THYROID STIMULATING HORMONE 0.605 uIU/ML (0.55-4.78)
[2023-11-28 17:43] LABS: BASO % 0.2 % (0.0-1.0); EOS # 0.1 10^3/uL (0.0-0.5); HEMATOCRIT 38.2 % (36.0-47.0); HEMOGLOBIN 12.9 g/dl (12.0-15.5); LYMPH # 1.1 10^3/uL (1.5-5.0); LYMPH % 13.2 % (24.0-44.0); MEAN CORPUSCULAR HEMOGLOBIN 31.7 pg (27.0-33.0); MEAN CORPUSCULAR HGB CONC 33.8 g/dl (32.0-36.5); MEAN CORPUSCULAR VOLUME 93.9 fl (80.0-96.0); MONO # 0.5 10^3/uL (0.0-0.8); MONO % 6.5 % (2.0-8.0); NEUTROPHILS # 6.5 10^3/uL (1.5-8.5); NEUTROPHILS % 78.7 % (36.0-66.0); PLATELET COUNT, AUTOMATED 271 10^3/uL (150-450); RED BLOOD COUNT 4.07 10^6/uL (4.00-5.40); WHITE BLOOD COUNT 8.3 10^3/uL (4.0-10.0)
[2023-11-28 18:06] LABS: MAGNESIUM LEVEL 1.9 MG/DL (1.8-2.4)
[2023-11-28] MEDS: NS 500 ML IV ONE (18:16)
[2023-11-28 18:35] LABS: AMPHETAMINES LEVEL URINE NEGATIVE (NEGATIVE); BARBITURATES URINE NEGATIVE (NEGATIVE); BENZODIAZEPINES URINE NEGATIVE (NEGATIVE); CANNABINOIDS URINE NEGATIVE (NEGATIVE); COCAINE METABOLITE URINE NEGATIVE (NEGATIVE); METHADONE URINE NEGATIVE (NEGATIVE); OPIATES URINE NEGATIVE (NEGATIVE); PHENCYCLIDINE URINE NEGATIVE (NEGATIVE)
[2023-11-28 20:51] VITALS: O2SAT 100
[2023-11-28 20:52] VITALS: BP 109/62; TEMP 98.1; O2SAT 97
== END 2023-11-28 20:54 | disposition home or self-care (01) ==
LOC: M ED 16:50
DX: F10.120 Alcohol abuse with intoxication, uncomplicated (principal); I44.7 Left bundle-branch block, unspecified; S00.93XA Contusion of unspecified part of head, initial encounter; Y92.9 Unspecified place or not applicable; Y93.9 Activity, unspecified; Y99.9 Unspecified external cause status; I10 Essential (primary) hypertension; K21.9 Gastro-esophageal reflux disease without esophagitis; E03.9 Hypothyroidism, unspecified; F32.A Depression, unspecified; Z79.1 Long term (current) use of non-steroidal anti-inflammatories (NSAID); Z79.2 Long term (current) use of antibiotics; Z79.899 Other long term (current) drug therapy
CPT/HCPCS: 70450; 72125; 80047; 80048; 80076; 80143; 80307; 82077; 83735; 84443; 85025; 93005; 93041; 94760; 96361; 96374; 99285; J2405

== ENCOUNTER → 2024-01-30 | Outpatient (CLI) | payer OTHER, BC ==
[~2024-01-30] MED LIST changes: +ASPI81TA26 PO; +LIDO15SO8 PO; +OXYB10TA23 PO; +OXYC1SOL3 PO; +SYNT150T PO; +TIRZ7.5P SQ
== END ==
LOC: M ONCR 13:45
PROVIDERS: ATTEND General Practice
DX: C09.0 Malignant neoplasm of tonsillar fossa (principal); H92.01 Otalgia, right ear; Z87.891 Personal history of nicotine dependence; Z79.85 Long-term (current) use of injectable non-insulin antidiabetic drugs; Z80.41 Family history of malignant neoplasm of ovary; Z79.82 Long term (current) use of aspirin; Z79.890 Hormone replacement therapy; Z79.631 Long term (current) use of antimetabolite agent; Z79.622 Long term (current) use of Janus kinase inhibitor; Z90.49 Acquired absence of other specified parts of digestive tract; Z90.710 Acquired absence of both cervix and uterus; Z99.89 Dependence on other enabling machines and devices
CPT/HCPCS: 31575; G0463

== ENCOUNTER → 2024-02-10 | Outpatient (CLI) | payer OTHER, BC ==
[~2024-02-10] MED LIST changes: -ASPI81TA26 PO; -SYNT150T PO
[2024-02-10 17:37] LABS: HEMATOCRIT 36.8 % (36.0-47.0); HEMOGLOBIN 12.4 g/dl (12.0-15.5); MEAN CORPUSCULAR HEMOGLOBIN 32.2 pg (27.0-33.0); MEAN CORPUSCULAR HGB CONC 33.7 g/dl (32.0-36.5); MEAN CORPUSCULAR VOLUME 95.6 fl (80.0-96.0); PLATELET COUNT, AUTOMATED 263 10^3/uL (150-450); RED BLOOD COUNT 3.85 10^6/uL (4.00-5.40); WHITE BLOOD COUNT 6.7 10^3/uL (4.0-10.0)
[2024-02-10 18:02] LABS: ALBUMIN 3.8 G/DL (3.2-5.2); ALKALINE PHOSPHATASE 56 U/L (46-116); ALT/SGPT 20 U/L (7.0-40); AST/SGOT 15 U/L (<34); BILIRUBIN,TOTAL 0.6 MG/DL (0.3-1.2); BLOOD UREA NITROGEN 24 MG/DL (9-23); CALCIUM LEVEL 9.7 MG/DL (8.3-10.6); CARBON DIOXIDE LEVEL 32 MMOL/L (20-31); CHLORIDE LEVEL 107 MMOL/L (98-107); CREATININE FOR GFR 0.67 MG/DL (0.55-1.30); GLOMERULAR FILTRATION RATE > 60.0 (>45); GLUCOSE, FASTING 90 MG/DL (74-106); POTASSIUM SERUM 3.6 MMOL/L (3.5-5.1); SODIUM LEVEL 140 MMOL/L (136-145); TOTAL PROTEIN 7.4 G/DL (5.7-8.2)
== END ==
LOC: M RAD 16:51
PROVIDERS: ATTEND Urology
DX: N32.81 Overactive bladder (principal); I44.7 Left bundle-branch block, unspecified; I49.9 Cardiac arrhythmia, unspecified

== ENCOUNTER 2024-02-12 09:30 | Outpatient (RCR) | payer OTHER, BC ==
[~2024-02-12 09:30] MED LIST changes: -LIDO15SO8 PO; -OXYC1SOL3 PO
[2024-02-12] MEDS ORDERED: OXYC1SOL3 PO (13:34)
[2024-02-12] MEDS ORDERED: LIDO15SO8 PO (13:34)
[2024-02-19] MEDS ORDERED: ASPI81TA26 PO (11:24)
[2024-02-19] MEDS ORDERED: SYNT150T PO (11:24)
[2024-02-24] MEDS ORDERED: CEPH500C PO (09:02)
[2024-02-24] MEDS ORDERED: HYDR-3713 PO (09:02)
== END 2024-02-24 ==
LOC: M ONCR 09:30
PROVIDERS: ATTEND General Practice
DX: Z51.0 Encounter for antineoplastic radiation therapy (principal); C09.0 Malignant neoplasm of tonsillar fossa

== ENCOUNTER → 2024-02-16 | Outpatient (CLI) | payer OTHER, BC ==
[~2024-02-16] MED LIST changes: +LIDO15SO8 PO; +OXYC1SOL3 PO
== END ==
LOC: M LAB 09:11
PROVIDERS: ATTEND Urology
DX: N32.81 Overactive bladder (principal)

== ENCOUNTER 2024-02-24 06:11 | Day surgery (SDC) | payer OTHER, BC ==
[~2024-02-24] VITALS: Ht 160 cm; Wt 64.4 kg
[~2024-02-24 06:11] MED LIST changes: +ASPI81TA26 PO; +SYNT150T PO
[2024-02-24] MEDS ORDERED: LR 1,000 ML IV SCH ×2 (06:35→08:55)
[2024-02-24] MEDS ORDERED: LIDOCAINE 2% 100MG/5ML SDV (FOR ANES.) As Ordered ONE (07:04)
[2024-02-24] MEDS ORDERED: ONDANSETRON 4MG 2ML VIAL As Ordered ONE (07:05)
[2024-02-24] MEDS ORDERED: propofoL 200 MG/20 ML VIAL As Ordered ONE (07:05)
[2024-02-24] MEDS ORDERED: MIDAZOLAM INJ 2MG/2ML VIAL As Ordered ONE (07:05)
[2024-02-24] MEDS ORDERED: fentaNYL 100 MCG/2 ML INJECTION As Ordered ONE (07:05)
[2024-02-24] MEDS ORDERED: ACETAMINOPHEN 1000MG 100ML IV BAG As Ordered ONE (07:05)
[2024-02-24] MEDS: ESTROGENS VAGINAL CREAM 30GM As Ordered ONE (07:14)
[2024-02-24] MEDS: METHYLENE BLUE 0.5% (5MG/ML) 10 ML AMP (PROVAYBLUE) As Ordered ONE (07:14)
[2024-02-24] MEDS: ceFAZolin SOD 2 GM in IV 1 EA IV ONE (07:40)
[2024-02-24] MEDS ORDERED: oxyCODONE 5MG TAB PO PRN (08:55)
[2024-02-24] MEDS ORDERED: fentaNYL 100 MCG/2 ML INJECTION IV PRN (08:55)
[2024-02-24] MEDS ORDERED: ONDANSETRON 4MG 2ML VIAL IV PRN (08:55)
[2024-02-24] MEDS ORDERED: HYDROMORPHONE HCL 0.5 MG/ 0.5 ML SYRINGE IV PRN (08:55)
[2024-02-24] MEDS ORDERED: HYDR-3713 PO (09:02)
[2024-02-24] MEDS ORDERED: CEPH500C PO (09:02)
[2024-02-24 10:06] VITALS: BP 126/83; TEMP 97.4; O2SAT 100
== END 2024-02-24 10:06 | disposition home or self-care (01) ==
LOC: M SDC 06:11
PROVIDERS: ATTEND Urology
DX: N81.10 Cystocele, unspecified (principal); G47.30 Sleep apnea, unspecified; Z87.891 Personal history of nicotine dependence; Z79.899 Other long term (current) drug therapy
CPT/HCPCS: 57240; 88302; C1769; J0131; J0665; J0690; J1100; J2250; J2405; J3010

== ENCOUNTER → 2024-03-26 | Outpatient (RCR) | payer OTHER, BC ==
[~2024-03-26] MED LIST changes: +CEPH500C PO; +LACT20EL PO; +MORP-69 PO; +PRED50TA PO; +TRIA1CR80 TOP
== END ==
LOC: M ONCR 02-25 11:37
PROVIDERS: ATTEND General Practice
DX: Z51.0 Encounter for antineoplastic radiation therapy (principal); C09.0 Malignant neoplasm of tonsillar fossa

== ENCOUNTER → 2024-04-02 | Outpatient (CLI) | payer OTHER, BC ==
[2024-04-02 16:14] LABS: CHOLESTEROL RISK RATIO 3.68 (<5); HDL CHOLESTEROL 36.1 MG/DL (>40); LDL CHOLESTEROL 71.1 MG/DL (<100); NON-HDL-C 96.9 MG/DL
== END ==
LOC: M LAB 15:29
PROVIDERS: ATTEND Internal Medicine Cardiovascular Disease
DX: I10 Essential (primary) hypertension (principal)

== ENCOUNTER 2024-04-14 14:53 | Outpatient (RCR) | payer OTHER, BC ==
[2024-03-30 16:04] LABS: BASO % 0.5 % (0.0-1.0); EOS # 0.1 10^3/uL (0.0-0.5); EOS % 0.9 % (0.0-3.0); HEMATOCRIT 39.7 % (36.0-47.0); HEMOGLOBIN 13.1 g/dl (12.0-15.5); LYMPH # 0.3 10^3/uL (1.5-5.0); LYMPH % 4.6 % (24.0-44.0); MEAN CORPUSCULAR HEMOGLOBIN 32.2 pg (27.0-33.0); MEAN CORPUSCULAR VOLUME 97.5 fl (80.0-96.0); MONO # 0.4 10^3/uL (0.0-0.8); MONO % 6.9 % (2.0-8.0); NEUTROPHILS % 86.8 % (36.0-66.0); PLATELET COUNT, AUTOMATED 311 10^3/uL (150-450); RED BLOOD COUNT 4.07 10^6/uL (4.00-5.40); WHITE BLOOD COUNT 5.8 10^3/uL (4.0-10.0)
[2024-03-30 16:38] LABS: ALBUMIN 3.3 G/DL (3.2-5.2); ALKALINE PHOSPHATASE 49 U/L (35-104); ALT/SGPT 10 U/L (7.0-40); AST/SGOT 9 U/L (<34); BILIRUBIN,TOTAL 0.5 MG/DL (0.3-1.2); BLOOD UREA NITROGEN 9 MG/DL (9-23); CALCIUM LEVEL 9.5 MG/DL (8.3-10.6); CARBON DIOXIDE LEVEL 30 MMOL/L (20-31); CHLORIDE LEVEL 104 MMOL/L (98-107); CREATININE FOR GFR 0.55 MG/DL (0.55-1.30); GLOMERULAR FILTRATION RATE > 60.0 (>45); GLUCOSE, FASTING 100 MG/DL (74-106); POTASSIUM SERUM 4.2 MMOL/L (3.5-5.1); SODIUM LEVEL 143 MMOL/L (136-145)
== END 2024-04-25 ==
LOC: M ONCR 14:53
PROVIDERS: ATTEND General Practice
DX: Z51.0 Encounter for antineoplastic radiation therapy (principal); C09.0 Malignant neoplasm of tonsillar fossa

== ENCOUNTER → 2024-04-21 | Outpatient (CLI) | payer OTHER, BC | LOC: M ONCR 15:39 | PROVIDERS: ATTEND General Practice | DX: C10.9 Malignant neoplasm of oropharynx, unspecified (principal); L59.8 Other specified disorders of the skin and subcutaneous tissue related to radiation; Z92.3 Personal history of irradiation ==

== ENCOUNTER → 2024-04-29 | Outpatient (CLI) | payer OTHER, BC | LOC: M ONCR 15:24 | PROVIDERS: ATTEND General Practice | DX: C09.0 Malignant neoplasm of tonsillar fossa (principal); Z92.23 Personal history of estrogen therapy ==

== ENCOUNTER → 2024-04-29 | Outpatient (CLI) | payer OTHER, BC | LOC: M LAB 16:11 | PROVIDERS: ATTEND Family Medicine | DX: E03.9 Hypothyroidism, unspecified (principal) ==

== ENCOUNTER → 2024-05-13 | Outpatient (CLI) | payer OTHER, BC ==
[~2024-05-13] MED LIST changes: +MIRT1TAB15 PO
== END ==
LOC: M ONCR 15:16
PROVIDERS: ATTEND General Practice
DX: C09.0 Malignant neoplasm of tonsillar fossa (principal)

== ENCOUNTER → 2024-06-06 | Outpatient (REF) | payer OTHER, BC ==
[~2024-06-06] MED LIST changes: +FLUC100T3 PO
== END ==
LOC: M WUC 17:22
PROVIDERS: ATTEND Physician Assistant
DX: J02.9 Acute pharyngitis, unspecified (principal)

== ENCOUNTER → 2024-06-06 | Outpatient (REF) | payer OTHER, BC | LOC: M WUC 16:56 | PROVIDERS: ATTEND Physician Assistant | DX: J02.9 Acute pharyngitis, unspecified (principal) ==

== ENCOUNTER → 2024-06-10 | Outpatient (CLI) | payer OTHER, BC ==
[~2024-06-10] MED LIST changes: +AMOX500C PO
== END ==
LOC: M ONCR 09:08
PROVIDERS: ATTEND General Practice
DX: C09.0 Malignant neoplasm of tonsillar fossa (principal); B37.0 Candidal stomatitis; Z88.8 Allergy status to other drugs, medicaments and biological substances; H92.01 Otalgia, right ear

== ENCOUNTER → 2024-08-04 | Outpatient (CLI) | payer OTHER, BC ==
[~2024-08-04] MED LIST changes: +GABA-1171 PO
== END ==
LOC: M PLARAD 11:05
PROVIDERS: ATTEND General Practice
DX: C09.0 Malignant neoplasm of tonsillar fossa (principal)
CPT/HCPCS: 78815; A9552

== ENCOUNTER → 2024-08-05 | Outpatient (CLI) | payer OTHER, BC ==
[~2024-08-05] MED LIST changes: +CETACAINE SPRAY 5GM MT ONE
== END ==
LOC: M ONCR 09:56
PROVIDERS: ATTEND General Practice
DX: C09.0 Malignant neoplasm of tonsillar fossa (principal); R25.2 Cramp and spasm; B37.0 Candidal stomatitis; Z87.891 Personal history of nicotine dependence; Z92.3 Personal history of irradiation; Z79.52 Long term (current) use of systemic steroids; Z79.890 Hormone replacement therapy; Z79.899 Other long term (current) drug therapy; Z79.631 Long term (current) use of antimetabolite agent; Z79.622 Long term (current) use of Janus kinase inhibitor
CPT/HCPCS: 31575; G0463

== ENCOUNTER 2024-09-07 06:17 | Inpatient (IN) | payer OTHER, BC ==
[2024-09-07] VITALS (16 sets, daily range): BP systolic 89–116; BP diastolic 51–66; TEMP 97.3–98.9; O2SAT 69–100
[~2024-09-07] VITALS: Ht 157.5 cm; Wt 53.1 kg
[~2024-09-07 06:17] MED LIST changes: -CETACAINE SPRAY 5GM MT ONE; +ELIQ5TAB PO; +ENSULIQ19 PO; +[UNRECOGNIZED DRUG - OTHER] PO
[2024-09-07] MEDS: NS 0.9% IV ONE (06:51)
[2024-09-07] MEDS: [UNRECOGNIZED DRUG - OTHER] IV ONE (06:51)
[2024-09-07 06:54] LABS: HEMATOCRIT 31.9 % (36.0-47.0); HEMOGLOBIN 9.7 g/dl (12.0-15.5); MEAN CORPUSCULAR HEMOGLOBIN 29.8 pg (27.0-33.0); MEAN CORPUSCULAR HGB CONC 30.4 g/dl (32.0-36.5); MEAN CORPUSCULAR VOLUME 98.2 fl (80.0-96.0); PLATELET COUNT, AUTOMATED 309 10^3/uL (150-450); RED BLOOD COUNT 3.25 10^6/uL (4.00-5.40)
[2024-09-07] MEDS: CEFEPIME HCL 2 GM in DEXTROSE 5% (D5W) ADV/MINI-BAG 50 ML IV ONE (07:03)
[2024-09-07] MEDS ORDERED: [UNRECOGNIZED DRUG - OTHER] IV ONE (07:15)
[2024-09-07] MEDS: cefTRIAXone SOD 2 GM in DEXTROSE 5% (D5W) ADV/MINI-BAG 50 ML IV ONE (07:15)
[2024-09-07] MEDS ORDERED: NS 0.9% IV ONE (07:15)
[2024-09-07 07:16] LABS: CK-MB VALUE MASS < 1.0 NG/ML (<3.6)
[2024-09-07 07:18] LABS: ALBUMIN 2.4 G/DL (3.2-5.2); ALKALINE PHOSPHATASE 173 U/L (35-104); ALT/SGPT 43 U/L (7.0-40); AST/SGOT 121 U/L (<34); BILIRUBIN,DIRECT 0.1 MG/DL (<0.4); BILIRUBIN,TOTAL 0.3 MG/DL (0.3-1.2); BLOOD UREA NITROGEN 26 MG/DL (9-23); CALCIUM LEVEL 8.7 MG/DL (8.3-10.6); CARBON DIOXIDE LEVEL 34 MMOL/L (20-31); CHLORIDE LEVEL 98 MMOL/L (98-107); CREATININE FOR GFR 0.77 MG/DL (0.55-1.30); GLOMERULAR FILTRATION RATE 87.7 (>45); GLUCOSE, FASTING 176 MG/DL (74-106); POTASSIUM SERUM 5.7 MMOL/L (3.5-5.1); SODIUM LEVEL 139 MMOL/L (136-145); TOTAL PROTEIN 6.8 G/DL (5.7-8.2)
[2024-09-07 07:20] LABS: KETONE, URINE AUTO RFX NEGATIVE (NEGATIVE); LEUKOCYTE ESTERASE UR AUTO RFX NEGATIVE (NEGATIVE); MUCUS, URINE RFX SMALL (NEGATIVE); NITRITE, URINE AUTO RFX NEGATIVE (NEGATIVE); RBC, URINE AUTO RFX 3 /HPF (0-3); SQUAM EPITHELIAL CELL UR AURFX 0 /HPF (0-6); WBC, URINE AUTO RFX 0 /HPF (0-3)
[2024-09-07 07:21] LABS: CPK CREATINE PHOSPHOKINASE 30 U/L (34-145); MB/CK RELATIVE INDEX 3.33 (< OR =4)
[2024-09-07] MEDS ORDERED: ISOVUE-370 76% 100ML VIAL As Ordered ONE (07:31)
[2024-09-07 07:33] LABS: LYMPHOCYTES 5 % (16-44); MONOCYTES 3 % (0-5); NEUTROPHILS 85 % (28-66)
[2024-09-07 07:34] LABS: PLATELET ESTIMATE NORMAL (NORMAL)
[2024-09-07 08:05] LABS: PROCALCITONIN 0.46 ng/ml
[2024-09-07 08:16] LABS: CK-MB VALUE MASS < 1.0 NG/ML (<3.6)
[2024-09-07 08:29] LABS: CPK CREATINE PHOSPHOKINASE 27 U/L (34-145)
[2024-09-07] MEDS ORDERED: OXYC-141 PO (09:02)
[2024-09-07] MEDS ORDERED: XARE20TA PO (09:02)
[2024-09-07] MEDS ORDERED: MULTTAB61 PO (09:02)
[2024-09-07] MEDS ORDERED: SERT-141 PO (09:02)
[2024-09-07] MEDS ORDERED: XALA0.007 OU (09:02)
[2024-09-07] MEDS ORDERED: LUBI24CA32 PO (09:02)
[2024-09-07] MEDS ORDERED: MIRT-88 PO (09:02)
[2024-09-07] MEDS ORDERED: OXYC10TA12 PO (09:02)
[2024-09-07] MEDS ORDERED: MIDO2.5T3 PO (09:02)
[2024-09-07] MEDS ORDERED: GABA-1171 PO (09:02)
[2024-09-07] MEDS ORDERED: HOME MED LIST COMPLETE! XX SCH (09:05)
[2024-09-07] MEDS: HYDROCORTISONE 100MG/2ML VIAL IV ONE (10:02)
[2024-09-07] MEDS ORDERED: VANCOMYCIN HCL 750 MG in IV FLUID PLACE HOLDER 1 EA IV SCH (10:30)
[2024-09-07] MEDS ORDERED: CEFEPIME HCL 1 GM in DEXTROSE 5% (D5W) ADV/MINI-BAG 50 ML IV SCH (10:30)
[2024-09-07 11:05] LABS: ABG BASE EXCESS 4.4 (-2.0-2.0); ABG O2 SATURATION 95.8 % (95.0-99.0); ABG PARTIAL PRESSURE O2 86.4 mmHg (75.0-100.0); ABG STANDARD HCO3 28.4 MMOL/L. (22.0-26.0); ABG TOTAL CO2 34.1 MMOL/L (23.0-31.0); ABG pH (ARTERIAL) 7.301 UNITS (7.350-7.450)
[2024-09-07 11:09] LABS: ABG PARTIAL PRESSURE CO2 66.4 mmHg (35.0-45.0)
[2024-09-07] MEDS: PANTOPRAZOLE 40MG VIAL IV SCH (11:39)
[2024-09-07] MEDS: NS (Normal Saline) 0.9% 1,000 ML IV ONE ×2 (11:40→17:45)
[2024-09-07 11:45] LABS: INR 1.47; PROTHROMBIN TIME 18.1 SECONDS (12.5-14.5)
[2024-09-07 11:55] LABS: FREE T3 2.9 PG/ML (2.3-4.2); THYROID STIMULATING HORMONE 3.857 uIU/ML (0.55-4.78)
[2024-09-07 11:56] LABS: FREE T4 0.94 NG/DL (0.89-1.76)
[2024-09-07] MEDS: NS (Normal Saline) 0.9% 1,000 ML IV SCH (13:47)
[2024-09-07] MEDS: VANCOMYCIN HCL 1,000 MG, VIAL MATE ADAPTER 1 EACH in NS 250 ML IV ONE (13:47)
[2024-09-07] MEDS: CEFEPIME HCL 2 GM in DEXTROSE 5% (D5W) ADV/MINI-BAG 50 ML IV SCH (15:28)
[2024-09-07 17:09] LABS: BLOOD UREA NITROGEN 24 MG/DL (9-23); CALCIUM LEVEL 7.6 MG/DL (8.3-10.6); CARBON DIOXIDE LEVEL 31 MMOL/L (20-31); CHLORIDE LEVEL 103 MMOL/L (98-107); CREATININE FOR GFR 0.55 MG/DL (0.55-1.30); GLOMERULAR FILTRATION RATE > 90.0 (>45); GLUCOSE, FASTING 109 MG/DL (74-106); POTASSIUM SERUM 5.1 MMOL/L (3.5-5.1); SODIUM LEVEL 141 MMOL/L (136-145)
[2024-09-07] MEDS: VANCOMYCIN HCL 750 MG, VIAL MATE ADAPTER 1 EACH in NS 250 ML IV SCH (18:42)
[2024-09-07] MEDS: ENOXAPARIN 40MG/0.4ML SYRINGE (J1650 PER 10MG) SC SCH (22:24)
[2024-09-08] VITALS (21 sets, daily range): BP systolic 96–159; BP diastolic 53–75; TEMP 97.5–98.6; O2SAT 68–99
[2024-09-08] MEDS: CHLORASEPTIC SPRAY MT PRN (00:06)
[2024-09-08 05:24] LABS: ABG BASE EXCESS 1.9 (-2.0-2.0); ABG HCO3 25.9 MMOL/L (22.0-26.0); ABG O2 SATURATION 98.9 % (95.0-99.0); ABG PARTIAL PRESSURE O2 171.3 mmHg (75.0-100.0); ABG STANDARD HCO3 26.2 MMOL/L. (22.0-26.0); ABG TOTAL CO2 27.1 MMOL/L (23.0-31.0); ABG pH (ARTERIAL) 7.452 UNITS (7.350-7.450)
[2024-09-08] MEDS ORDERED: LEVOTHYROXINE 150MCG TABLET (0.15MG) PO SCH (06:00)
[2024-09-08 06:27] LABS: HEMATOCRIT 25.3 % (36.0-47.0); LYMPH # 0.5 10^3/uL (1.5-5.0); LYMPH % 8.4 % (24.0-44.0); MEAN CORPUSCULAR HEMOGLOBIN 30.1 pg (27.0-33.0); MEAN CORPUSCULAR HGB CONC 31.6 g/dl (32.0-36.5); MEAN CORPUSCULAR VOLUME 95.1 fl (80.0-96.0); MONO # 0.4 10^3/uL (0.0-0.8); MONO % 6.5 % (2.0-8.0); NEUTROPHILS # 4.5 10^3/uL (1.5-8.5); NEUTROPHILS % 84.9 % (36.0-66.0); PLATELET COUNT, AUTOMATED 228 10^3/uL (150-450); RED BLOOD COUNT 2.66 10^6/uL (4.00-5.40); WHITE BLOOD COUNT 5.4 10^3/uL (4.0-10.0)
[2024-09-08 06:55] LABS: ALBUMIN 1.9 G/DL (3.2-5.2); ALKALINE PHOSPHATASE 150 U/L (35-104); ALT/SGPT 57 U/L (7.0-40); AST/SGOT 66 U/L (<34); BILIRUBIN,TOTAL 0.3 MG/DL (0.3-1.2); BLOOD UREA NITROGEN 22 MG/DL (9-23); CALCIUM LEVEL 8.2 MG/DL (8.3-10.6); CARBON DIOXIDE LEVEL 28 MMOL/L (20-31); CHLORIDE LEVEL 108 MMOL/L (98-107); CREATININE FOR GFR 0.47 MG/DL (0.55-1.30); GLOMERULAR FILTRATION RATE > 90.0 (>45); GLUCOSE, FASTING 97 MG/DL (74-106); SODIUM LEVEL 145 MMOL/L (136-145); TOTAL PROTEIN 5.4 G/DL (5.7-8.2)
[2024-09-08] MEDS: LEVOTHYROXINE 150MCG TABLET (0.15MG) PEG SCH (09:52)
[2024-09-08] MEDS ORDERED: ALBUTEROL SULFATE 2.5MG/0.5ML INH CONCENTRATE NEB SOLN NEB PRN (11:35)
[2024-09-08 12:17] LABS: IRON (FE) 28 UG/DL (50-170); TOTAL IRON BINDING CAPACITY 234 UG/DL (250-425)
[2024-09-08] MEDS: cefTRIAXone SOD 1 GM in DEXTROSE 5% (D5W) ADV/MINI-BAG 50 ML IV SCH (14:06)
[2024-09-08] MEDS: RIVAROXABAN 20MG TAB (XARELTO) PEG SCH (17:09)
[2024-09-08] MEDS ORDERED: RIVAROXABAN 20MG TAB (XARELTO) PO SCH (18:00)
[2024-09-08] MEDS: oxyCODONE 10 MG CR TAB PO SCH (20:24)
[2024-09-09] VITALS: O2SAT 96
[2024-09-09 01:38] LABS: BLOOD UREA NITROGEN 17 MG/DL (9-23); CALCIUM LEVEL 7.7 MG/DL (8.3-10.6); CARBON DIOXIDE LEVEL 27 MMOL/L (20-31); CHLORIDE LEVEL 107 MMOL/L (98-107); CREATININE FOR GFR 0.39 MG/DL (0.55-1.30); GLOMERULAR FILTRATION RATE > 90.0 (>45); GLUCOSE, FASTING 139 MG/DL (74-106); MAGNESIUM LEVEL 1.8 MG/DL (1.8-2.4); PHOSPHORUS LEVEL 1.6 MG/DL (2.4-5.1); POTASSIUM SERUM 3.6 MMOL/L (3.5-5.1); SODIUM LEVEL 142 MMOL/L (136-145)
[2024-09-09] MEDS: MAG SULF 1GM/100ML (MAG RUN) 1 GM in IV 1 EA IV SCH (02:10)
[2024-09-09 04:00] VITALS: BP 116/70; TEMP 97.9; O2SAT 99
[2024-09-09] MEDS: SODIUM PHOSPHATE INJ 20 MMOL in D5W 250 ML IV ONE (04:15)
[2024-09-09] MEDS: KCL 10MEQ/100ML SWI (KRUN) 10 MEQ in IV 1 EA IV SCH (04:16)
[2024-09-09 06:53] LABS: HEMATOCRIT 28.6 % (36.0-47.0); MEAN CORPUSCULAR HEMOGLOBIN 29.9 pg (27.0-33.0); MEAN CORPUSCULAR HGB CONC 31.5 g/dl (32.0-36.5); PLATELET COUNT, AUTOMATED 262 10^3/uL (150-450); RED BLOOD COUNT 3.01 10^6/uL (4.00-5.40); WHITE BLOOD COUNT 5.9 10^3/uL (4.0-10.0)
[2024-09-09 07:32] LABS: ALBUMIN 1.9 G/DL (3.2-5.2); ALKALINE PHOSPHATASE 128 U/L (35-104); ALT/SGPT 63 U/L (7.0-40); AST/SGOT 44 U/L (<34); BILIRUBIN,TOTAL 0.2 MG/DL (0.3-1.2); BLOOD UREA NITROGEN 14 MG/DL (9-23); CALCIUM LEVEL 7.8 MG/DL (8.3-10.6); CARBON DIOXIDE LEVEL 28 MMOL/L (20-31); CHLORIDE LEVEL 105 MMOL/L (98-107); CREATININE FOR GFR 0.41 MG/DL (0.55-1.30); GLOMERULAR FILTRATION RATE > 90.0 (>45); GLUCOSE, FASTING 155 MG/DL (74-106); MAGNESIUM LEVEL 2.1 MG/DL (1.8-2.4); POTASSIUM SERUM 3.4 MMOL/L (3.5-5.1); SODIUM LEVEL 141 MMOL/L (136-145); TOTAL PROTEIN 5.5 G/DL (5.7-8.2)
[2024-09-09 08:00] VITALS: BP 107/75; TEMP 97; O2SAT 98
[2024-09-09 08:20] VITALS: O2SAT 100
[2024-09-09 09:20] VITALS: O2SAT 92
[2024-09-09] MEDS: ONDANSETRON 4MG ORAL DISINTEGRATING TAB PO PRN (10:53)
[2024-09-09] MEDS: MAGNESIUM OXIDE 400MG TAB (MAG-OX) PEG SCH (10:54)
[2024-09-09 11:54] LABS: PROCALCITONIN 0.39 ng/ml
[2024-09-09] MEDS: POTASSIUM CHLORIDE 10% LIQ 20MEQ/15ML UDC PO ONE (14:32)
[2024-09-09] MEDS: oxyCODONE 5MG TAB PEG PRN (16:05)
[2024-09-09] MEDS: FERROUS SULFATE 325MG TAB PEG SCH (20:33)
[2024-09-10 05:18] LABS: HEMATOCRIT 30.2 % (36.0-47.0); HEMOGLOBIN 9.7 g/dl (12.0-15.5); MEAN CORPUSCULAR HEMOGLOBIN 29.8 pg (27.0-33.0); MEAN CORPUSCULAR HGB CONC 32.1 g/dl (32.0-36.5); MEAN CORPUSCULAR VOLUME 92.9 fl (80.0-96.0); PLATELET COUNT, AUTOMATED 269 10^3/uL (150-450); RED BLOOD COUNT 3.25 10^6/uL (4.00-5.40); WHITE BLOOD COUNT 4.6 10^3/uL (4.0-10.0)
[2024-09-10 05:59] LABS: ALBUMIN 1.9 G/DL (3.2-5.2); ALKALINE PHOSPHATASE 116 U/L (35-104); ALT/SGPT 43 U/L (7.0-40); AST/SGOT 18 U/L (<34); BILIRUBIN,TOTAL 0.2 MG/DL (0.3-1.2); BLOOD UREA NITROGEN 10 MG/DL (9-23); CALCIUM LEVEL 8.2 MG/DL (8.3-10.6); CARBON DIOXIDE LEVEL 30 MMOL/L (20-31); CHLORIDE LEVEL 105 MMOL/L (98-107); CREATININE FOR GFR 0.38 MG/DL (0.55-1.30); GLOMERULAR FILTRATION RATE > 90.0 (>45); GLUCOSE, FASTING 101 MG/DL (74-106); POTASSIUM SERUM 4.4 MMOL/L (3.5-5.1); SODIUM LEVEL 141 MMOL/L (136-145); TOTAL PROTEIN 5.4 G/DL (5.7-8.2)
[2024-09-10] MEDS ORDERED: MAGN400T2 PEG (07:09)
[2024-09-10] MEDS ORDERED: FERR1TAB8 PEG (07:09)
[2024-09-10] MEDS ORDERED: ROZE8TAB16 PO (07:12)
[2024-09-10] MEDS ORDERED: CEFD300CAP PO (07:12)
[2024-09-10 08:00] VITALS: BP 137/74; TEMP 98.3; O2SAT 95
[2024-09-10 09:31] VITALS: O2SAT 98
== END 2024-09-10 10:00 | disposition home or self-care (01) | DRG 720 ==
LOC: M ED 06:17 → EDBD 06:17 → M ED INP 10:25 → M ICU 11:44
PROVIDERS: ADMIT Internal Medicine Critical Care Medicine; ATTEND Internal Medicine Critical Care Medicine
DX: A41.9 Sepsis, unspecified organism (principal); G93.40 Encephalopathy, unspecified; E87.20 Acidosis, unspecified; I95.9 Hypotension, unspecified; J18.9 Pneumonia, unspecified organism; J96.01 Acute respiratory failure with hypoxia; E46 Unspecified protein-calorie malnutrition; Z93.1 Gastrostomy status; J96.02 Acute respiratory failure with hypercapnia; Z66 Do not resuscitate; Z92.3 Personal history of irradiation; E03.9 Hypothyroidism, unspecified; G47.33 Obstructive sleep apnea (adult) (pediatric); E86.0 Dehydration; D64.9 Anemia, unspecified; R07.89 Other chest pain; R25.2 Cramp and spasm; R74.01 Elevation of levels of liver transaminase levels; E87.6 Hypokalemia; R19.7 Diarrhea, unspecified; Z87.891 Personal history of nicotine dependence; Z85.818 Personal history of malignant neoplasm of other sites of lip, oral cavity, and pharynx; Z79.890 Hormone replacement therapy; Z79.899 Other long term (current) drug therapy; Z90.49 Acquired absence of other specified parts of digestive tract; Z90.79 Acquired absence of other genital organ(s)

== ENCOUNTER 2024-09-26 16:16 | Emergency (ER) | payer OTHER, BC ==
[~2024-09-26] VITALS: Ht 157.5 cm; Wt 49.4 kg
[~2024-09-26 16:16] MED LIST changes: +CEFD300CAP PO; +FERR1TAB8 PEG; +LIFI1DRO4 OU; +LUBI24CA32 PO; +MAGN400T2 PEG; +MIDO2.5T3 PO; +MIRT-88 PO; +MULTTAB61 PO; +OXYC-141 PO; +OXYC10TA12 PO; -PRED50TA PO; +PRED50TA57 PO; +ROZE8TAB16 PO; +SERT-141 PO; +XALA0.007 OU; +XARE20TA PO; -XIID5DRO OU
[2024-09-26] MEDS: CREON-12 CAPSULE (PANCRELIPASE) GT ONE (17:55)
[2024-09-26] MEDS: GASTROGRAFIN SOLUTION 30ML PO ONE (20:22)
[2024-09-26 21:10] VITALS: BP 126/59; TEMP 99; O2SAT 100
== END 2024-09-26 21:27 | disposition home or self-care (01) ==
LOC: M ED 16:16
DX: K94.23 Gastrostomy malfunction (principal); Z79.2 Long term (current) use of antibiotics; Z79.01 Long term (current) use of anticoagulants; Z79.899 Other long term (current) drug therapy

== ENCOUNTER 2024-10-01 16:59 | Observation (INO) | payer OTHER, BC ==
[~2024-10-01] VITALS: Ht 157.5 cm; Wt 47.9 kg
[2024-10-01] MEDS: NS (Normal Saline) 0.9% 1,000 ML IV SCH (18:01)
[2024-10-01 18:21] LABS: BASO % 0.3 % (0.0-1.0); EOS % 0.2 % (0.0-3.0); HEMATOCRIT 30.8 % (36.0-47.0); HEMOGLOBIN 9.8 g/dl (12.0-15.5); LYMPH # 0.5 10^3/uL (1.5-5.0); LYMPH % 8.2 % (24.0-44.0); MEAN CORPUSCULAR HEMOGLOBIN 29.1 pg (27.0-33.0); MEAN CORPUSCULAR HGB CONC 31.8 g/dl (32.0-36.5); MEAN CORPUSCULAR VOLUME 91.4 fl (80.0-96.0); MONO # 0.5 10^3/uL (0.0-0.8); MONO % 7.5 % (2.0-8.0); NEUTROPHILS % 83.5 % (36.0-66.0); PLATELET COUNT, AUTOMATED 307 10^3/uL (150-450); RED BLOOD COUNT 3.37 10^6/uL (4.00-5.40)
[2024-10-01 18:50] LABS: LIPASE 15 U/L (12-53)
[2024-10-01 18:53] LABS: ALBUMIN 2.5 G/DL (3.2-5.2); ALKALINE PHOSPHATASE 61 U/L (35-104); ALT/SGPT 14 U/L (7.0-40); AST/SGOT 13 U/L (<34); BILIRUBIN,DIRECT 0.1 MG/DL (<0.4); BILIRUBIN,TOTAL 0.4 MG/DL (0.3-1.2); BLOOD UREA NITROGEN 17 MG/DL (9-23); CARBON DIOXIDE LEVEL 32 MMOL/L (20-31); CHLORIDE LEVEL 101 MMOL/L (98-107); CREATININE FOR GFR 0.46 MG/DL (0.55-1.30); GLOMERULAR FILTRATION RATE > 90.0 (>45); GLUCOSE, FASTING 123 MG/DL (74-106); MAGNESIUM LEVEL 1.9 MG/DL (1.8-2.4); POTASSIUM SERUM 4.4 MMOL/L (3.5-5.1); SODIUM LEVEL 138 MMOL/L (136-145); TOTAL PROTEIN 6.9 G/DL (5.7-8.2)
[2024-10-01] MEDS ORDERED: ISOVUE-370 76% 100ML VIAL As Ordered ONE (19:38)
[2024-10-01] MEDS: MORPHINE 2 MG/ML 1ML VIAL IV ONE (20:08)
[2024-10-01] MEDS ORDERED: LEVO175T2 PO (23:27)
[2024-10-01] MEDS ORDERED: RAME8TAB2 PO (23:27)
[2024-10-01] MEDS ORDERED: FERR325T19 PEG (23:27)
[2024-10-01] MEDS ORDERED: ACET-897 PO (23:27)
[2024-10-01] MEDS ORDERED: HOME MED LIST COMPLETE! XX SCH (23:50)
[2024-10-01] MEDS ORDERED: PROT20TA11 PO (23:59)
[2024-10-02 00:38] LABS: HEMATOCRIT 29.4 % (36.0-47.0); HEMOGLOBIN 9.4 g/dl (12.0-15.5); MEAN CORPUSCULAR HEMOGLOBIN 29.2 pg (27.0-33.0); MEAN CORPUSCULAR VOLUME 91.3 fl (80.0-96.0); PLATELET COUNT, AUTOMATED 278 10^3/uL (150-450); RED BLOOD COUNT 3.22 10^6/uL (4.00-5.40); WHITE BLOOD COUNT 5.9 10^3/uL (4.0-10.0)
[2024-10-02 00:41] VITALS: BP 107/73; TEMP 97.9; O2SAT 97
[2024-10-02 01:00] LABS: ALBUMIN 2.4 G/DL (3.2-5.2); ALKALINE PHOSPHATASE 58 U/L (35-104); ALT/SGPT 9 U/L (7.0-40); AST/SGOT 11 U/L (<34); BILIRUBIN,TOTAL 0.4 MG/DL (0.3-1.2); BLOOD UREA NITROGEN 13 MG/DL (9-23); CALCIUM LEVEL 8.8 MG/DL (8.3-10.6); CARBON DIOXIDE LEVEL 32 MMOL/L (20-31); CHLORIDE LEVEL 101 MMOL/L (98-107); CREATININE FOR GFR 0.46 MG/DL (0.55-1.30); GLOMERULAR FILTRATION RATE > 90.0 (>45); GLUCOSE, FASTING 130 MG/DL (74-106); POTASSIUM SERUM 3.7 MMOL/L (3.5-5.1); SODIUM LEVEL 139 MMOL/L (136-145); TOTAL PROTEIN 6.5 G/DL (5.7-8.2)
[2024-10-02] MEDS: MORPHINE 2 MG/ML 1ML VIAL IV ONE (02:12)
[2024-10-02] MEDS: D5W/0.45% SODIUM CHLORIDE 1,000 ML IV SCH (02:12)
[2024-10-02 04:31] VITALS: BP 128/72; TEMP 97.3; O2SAT 99
[2024-10-02] MEDS ORDERED: ENOXAPARIN 40MG/0.4ML SYRINGE (J1650 PER 10MG) SC SCH (09:00)
[2024-10-02] MEDS: oxyCODONE 10 MG CR TAB PO SCH ×2 (09:53→20:14)
[2024-10-02 12:20] VITALS: BP 128/64; TEMP 97.5; O2SAT 100
[2024-10-02] MEDS: ACETAMINOPHEN 325 MG TAB PO PRN (13:02)
[2024-10-02] MEDS: oxyBUTYnin *XL* 5 MG TAB PO SCH (13:02)
[2024-10-02] MEDS: MIDODRINE 2.5 MG TAB PO SCH (13:02)
[2024-10-02] MEDS: MORPHINE 10MG/0.5ML ORAL CONCENTRATE SOLUTION U/D PO PRN (14:04)
[2024-10-02] MEDS: LEVOTHYROXINE 150MCG TABLET (0.15MG) PO SCH (17:24)
[2024-10-02] MEDS: LEVOTHYROXINE 25MCG TABLET (0.025MG) PO SCH (17:25)
[2024-10-02] MEDS: RIVAROXABAN 20MG TAB PO SCH (17:48)
[2024-10-02 19:22] VITALS: BP 104/55; TEMP 97.3; O2SAT 99
[2024-10-02] MEDS: LATANOPROST 0.005% OPHTH SOLN 2.5 ML OU SCH (20:35)
[2024-10-03 08:28] VITALS: BP 96/49; TEMP 97.2; O2SAT 98
[2024-10-03 12:00] VITALS: BP 111/61; TEMP 97.2; O2SAT 97
== END 2024-10-03 12:45 | disposition home or self-care (01) ==
LOC: M ED 16:59 → M ED INP 17:00 → M MS5PR 10-02 00:40
PROVIDERS: ADMIT Family Medicine; ATTEND Internal Medicine Nephrology
DX: R11.2 Nausea with vomiting, unspecified (principal); R19.7 Diarrhea, unspecified; E43 Unspecified severe protein-calorie malnutrition; Z93.1 Gastrostomy status; Z68.1 Body mass index [BMI] 19.9 or less, adult; R00.1 Bradycardia, unspecified; M62.50 Muscle wasting and atrophy, not elsewhere classified, unspecified site; C09.9 Malignant neoplasm of tonsil, unspecified; Z92.3 Personal history of irradiation; E03.9 Hypothyroidism, unspecified; J43.9 Emphysema, unspecified; D50.9 Iron deficiency anemia, unspecified; I48.91 Unspecified atrial fibrillation; J84.9 Interstitial pulmonary disease, unspecified; R53.81 Other malaise; I95.89 Other hypotension; H40.9 Unspecified glaucoma; E53.8 Deficiency of other specified B group vitamins; N81.10 Cystocele, unspecified; M06.9 Rheumatoid arthritis, unspecified; G47.33 Obstructive sleep apnea (adult) (pediatric); Z90.49 Acquired absence of other specified parts of digestive tract; Z98.890 Other specified postprocedural states; Z87.891 Personal history of nicotine dependence; Z79.899 Other long term (current) drug therapy; Z79.890 Hormone replacement therapy; Z79.01 Long term (current) use of anticoagulants; Z79.891 Long term (current) use of opiate analgesic
CPT/HCPCS: 36415; 74177; 80048; 80053; 80076; 83690; 83735; 85025; 85027; 87507; 93005; 93041; 94660; 96374; 96376; 99285; Q9967

== ENCOUNTER → 2024-12-22 | Outpatient (CLI) | payer OTHER, BC ==
[~2024-12-22] MED LIST changes: +ACET-897 PO; +BUSP5TA PO; +FERR325T19 PEG; +PRED5EL PEG; +PROT20TA11 PO; +RAME8TAB2 PO
== END ==
LOC: M ONCR 14:45
PROVIDERS: ATTEND General Practice
DX: C09.0 Malignant neoplasm of tonsillar fossa (principal); Z92.3 Personal history of irradiation; Z79.01 Long term (current) use of anticoagulants; Z79.890 Hormone replacement therapy; Z79.899 Other long term (current) drug therapy; Z87.891 Personal history of nicotine dependence

== ENCOUNTER → 2025-01-01 | Outpatient (CLI) | payer OTHER, BC ==
[~2025-01-01] MED LIST changes: +RIZA5TAB2 PO
== END ==
LOC: M ONCR 14:31
PROVIDERS: ATTEND General Practice
DX: C09.0 Malignant neoplasm of tonsillar fossa (principal); J35.8 Other chronic diseases of tonsils and adenoids; M79.2 Neuralgia and neuritis, unspecified; R20.8 Other disturbances of skin sensation; Z79.899 Other long term (current) drug therapy; Z85.818 Personal history of malignant neoplasm of other sites of lip, oral cavity, and pharynx; Z87.891 Personal history of nicotine dependence; Z92.3 Personal history of irradiation; Z93.1 Gastrostomy status

== ENCOUNTER → 2025-03-03 | Outpatient (CLI) | payer BC ==
[~2025-03-03] MED LIST changes: +AMOX400S PO; +BACTDSTA PO; +GLUC1.5L PO; +PENT400T47 PO
[2025-03-03 11:40] LABS: ALT/SGPT < 9 U/L (7.0-40); AST/SGOT 13 U/L (<34); CALCIUM LEVEL 9.0 MG/DL (8.3-10.6); CARBON DIOXIDE LEVEL 33 MMOL/L (20-31); CHLORIDE LEVEL 101 MMOL/L (98-107); CREATININE FOR GFR 0.58 MG/DL (0.55-1.30); GLOMERULAR FILTRATION RATE > 90.0 (>45); POTASSIUM SERUM 4.7 MMOL/L (3.5-5.1); SODIUM LEVEL 140 MMOL/L (136-145)
== END ==
LOC: M LAB 10:43
PROVIDERS: ATTEND General Practice
DX: C09.0 Malignant neoplasm of tonsillar fossa (principal)

== ENCOUNTER → 2025-03-05 | Outpatient (CLI) | payer BC ==
[~2025-03-05] MED LIST changes: +ISOVUE-370 76% 100 ML VIAL As Ordered ONE
== END ==
LOC: M RAD 14:21
PROVIDERS: ATTEND General Practice
DX: C09.0 Malignant neoplasm of tonsillar fossa (principal)
CPT/HCPCS: 70491; Q9967

== ENCOUNTER → 2025-03-12 | Outpatient (CLI) | payer BC, OTHER ==
[~2025-03-12] MED LIST changes: -ISOVUE-370 76% 100 ML VIAL As Ordered ONE
== END ==
LOC: M ONCR 13:52
PROVIDERS: ATTEND General Practice
DX: C09.0 Malignant neoplasm of tonsillar fossa (principal); Z87.891 Personal history of nicotine dependence; Z92.3 Personal history of irradiation; Z93.1 Gastrostomy status; Z79.631 Long term (current) use of antimetabolite agent; Z79.01 Long term (current) use of anticoagulants; Z79.899 Other long term (current) drug therapy
CPT/HCPCS: 31575; G0463

== ENCOUNTER 2025-04-19 08:43 | Outpatient (RCR) | payer BC ==
[~2025-04-19 08:43] MED LIST changes: -BACTDSTA PO; +SULF-8 PO
== END 2025-04-25 ==
LOC: M ST 08:43
PROVIDERS: ATTEND General Practice
DX: C09.0 Malignant neoplasm of tonsillar fossa (principal); Z93.1 Gastrostomy status; J02.9 Acute pharyngitis, unspecified; R25.2 Cramp and spasm

== ENCOUNTER 2025-05-10 07:47 | Outpatient (RCR) | payer BC | END 2025-05-26 | LOC: M ST 07:47 | PROVIDERS: ATTEND General Practice | DX: R25.2 Cramp and spasm (principal); J39.2 Other diseases of pharynx; Z93.1 Gastrostomy status ==

== ENCOUNTER 2025-05-22 19:56 | Emergency (ER) | payer BC ==
[~2025-05-22] VITALS: Ht 157.5 cm; Wt 56.6 kg
[2025-05-22] MEDS: GASTROGRAFIN SOLUTION 30 ML PO ONE (22:03)
[2025-05-22 22:45] VITALS: BP 120/87; TEMP 98.7; O2SAT 100
== END 2025-05-22 22:47 | disposition home or self-care (01) ==
LOC: M ED 21:40
DX: K94.23 Gastrostomy malfunction (principal); G47.33 Obstructive sleep apnea (adult) (pediatric); C09.0 Malignant neoplasm of tonsillar fossa; Z79.1 Long term (current) use of non-steroidal anti-inflammatories (NSAID); Z79.2 Long term (current) use of antibiotics; Z79.01 Long term (current) use of anticoagulants; Z79.899 Other long term (current) drug therapy; Z79.810 Long term (current) use of selective estrogen receptor modulators (SERMs)
CPT/HCPCS: 74018; 99283; Q9963

== ENCOUNTER 2025-05-23 20:31 | Emergency (ER) | payer BC ==
[~2025-05-23] VITALS: Ht 160 cm; Wt 56.5 kg
[2025-05-24] MEDS: GASTROGRAFIN SOLUTION 30 ML PO ONE (01:30)
[2025-05-24 02:15] VITALS: BP 127/67; TEMP 98; O2SAT 100
== END 2025-05-24 02:55 | disposition home or self-care (01) ==
LOC: M ED 20:31
DX: K94.23 Gastrostomy malfunction (principal); Z79.1 Long term (current) use of non-steroidal anti-inflammatories (NSAID); Z79.2 Long term (current) use of antibiotics; Z79.899 Other long term (current) drug therapy; Z79.01 Long term (current) use of anticoagulants; Z79.52 Long term (current) use of systemic steroids; Z79.810 Long term (current) use of selective estrogen receptor modulators (SERMs)
CPT/HCPCS: 74018; 99283; Q9963